=== PATIENT | female | born 1960 | race Caucasian/White ===

== ENCOUNTER → 2017-10-20 12:35 | Outpatient (CLI) | payer OTHER, SELFPAY | PROVIDERS: Family Provider Family Medicine; PCP Family Medicine; Visit Provider Obstetrics & Gynecology | DX: Z12.31 Encounter for screening mammogram for malignant neoplasm of breast (principal) | CPT/HCPCS: 77063; 77067 ==

== ENCOUNTER → 2018-11-19 15:12 | Outpatient (CLI) | payer OTHER, SELFPAY ==
[2018-11-09 13:34] VITALS: BMI 22.4
--- NOTE | 2018-11-19 15:14 | BI_ITS ---
BILATERAL DIGITAL MAMMOGRAM WITH TOMOSYNTHESIS: Mediolateraloblique and craniocaudal views demonstrate no evidence of dominant parenchymal masses. No cluster of microcalcifications or architectural distortion is seen. No evidence of skin thickening is identified. There has been no significant change since 10/20/2017. Breast Density: The breast tissue is extremely dense which may lower the sensitivity of mammography. CAD was used to assist in final assessment. IMPRESSION: NORMAL MAMMOGRAM BILATERALLY. FINAL ASSESSMENT: BIRAD 1 (NEGATIVE) YEARLY MAMMOGRAM RECOMMENDED Electronically Signed: Tico Del Castillo, at 19:30 EDT Tel , Service support , BI/SCREEN MAMM (CAD) W/ALISTAIR LIMA
== END ==
PROVIDERS: Family Provider Family Medicine; PCP Family Medicine; Referring Provider Obstetrics & Gynecology; Visit Provider Obstetrics & Gynecology
DX: Z12.31 Encounter for screening mammogram for malignant neoplasm of breast (principal)
CPT/HCPCS: 77063; 77067

== ENCOUNTER → 2019-02-18 12:11 | Outpatient (CLI) | payer OTHER, SELFPAY ==
[2018-11-09 13:34] VITALS: BMI 22.4
[2019-02-18 14:12] LABS: Cholesterol 197 mg/dL (200); High Density Lipoprotein 96 mg/dL; Thyroid Stim Hormone (TSH) 3.67 uIU/mL (0.358-3.74); Triglycerides 52 mg/dL; Very Low Density Lipoprotein 10 mg/dL (5-40)
== END ==
PROVIDERS: Family Provider Family Medicine; PCP Family Medicine; Visit Provider Family Medicine
DX: E03.9 Hypothyroidism, unspecified (principal); Z13.220 Encounter for screening for lipoid disorders
CPT/HCPCS: 36415; 80061; 84443

== ENCOUNTER → 2019-11-27 16:25 | Outpatient (CLI) | payer OTHER, SELFPAY ==
[2018-11-09 13:34] VITALS: BMI 22.4
[2019-11-14 16:00] VITALS: BMI 22.4
--- NOTE | 2019-11-27 16:26 | BI_ITS ---
MAMMOGRAPHY - BILATERAL SCREENING REASON FOR EXAM: Female, 58 years old. Routine annual screening examination. PERTINENT HISTORY: Sister with breast cancer. History of remote bilateral stereotactic breast biopsies. TECHNIQUE: Digital bilateral breast alistair (3D mammographic acquisition) in the CC and MLO projections. 2-D mediolateral oblique (MLO) and craniocaudad (CC) views of both breasts were obtained. CAD: Full Field Digital Mammography with Computer Added Detection was performed. COMPARISON: Comparison is made with prior study dated 11/19/2018 and 10/20/2017. FINDINGS: Breast Composition: The breasts are extremely dense, which lowers the sensitivity of mammography. There are no dominant masses or suspicious calcifications. Tissue clip markers are once again seen in both breasts. No other significant abnormalities are identified. There has been no significant change since the prior study. BI/SCREEN MAMM (CAD) W/ALISTAIR BILAT IMPRESSION: Stable bilateral screening mammogram. Yearly follow-up mammogram recommended. (A) ASSESSMENT CATEGORY: BIRADS Category 2: Benign. A letter regarding these results will be sent to the patient by the facility within 30 days. Approximately 10% of breast cancers are not detected by mammography. A normal mammogram should not delay biopsy of a clinically suspicious abnormality. [id number] Electronically Signed: Carmelo Martinez, at 8:36 EDT , Service support ,
== END ==
PROVIDERS: PCP Family Medicine; Visit Provider Obstetrics & Gynecology
DX: Z12.31 Encounter for screening mammogram for malignant neoplasm of breast (principal)
CPT/HCPCS: 77063; 77067

== ENCOUNTER → 2020-03-02 10:39 | Outpatient (CLI) | payer OTHER, SELFPAY ==
[2019-11-14 16:00] VITALS: BMI 22.4
[2020-03-02 13:36] LABS: Anion Gap 6 (5-15); BUN 12 mg/dL (7-18); Calcium,Total 9.2 mg/dL (8.5-10.1); Chloride 104 mmol/L (98-107); Cholesterol 192 mg/dL (200); Creatinine, Serum 0.86 mg/dL (0.55-1.02); EST Glomerular Filtration Rate 72 mL/min (>60); Est Glom Filt Rate - Afr Amer 87 mL/min (>60); Glucose 100 mg/dL (74-106); High Density Lipoprotein 83 mg/dL; Potassium 4.8 mmol/L (3.5-5.1); Sodium Level 135 mmol/L (136-145); Thyroid Stim Hormone (TSH) 4.93 uIU/mL (0.358-3.74); Triglycerides 49 mg/dL; Very Low Density Lipoprotein 10 mg/dL (5-40)
== END ==
PROVIDERS: PCP Family Medicine; Visit Provider Family Medicine
DX: Z00.00 Encounter for general adult medical examination without abnormal findings (principal)
CPT/HCPCS: 36415; 80048; 80061; 84443

== ENCOUNTER → 2020-06-09 13:41 | Outpatient (CLI) | payer OTHER, SELFPAY ==
[2019-11-14 16:00] VITALS: BMI 22.4
[2020-06-09 15:38] LABS: Thyroid Stim Hormone (TSH) 3.89 uIU/mL (0.358-3.74)
== END ==
PROVIDERS: PCP Family Medicine; Referring Provider Family Medicine; Visit Provider Family Medicine
DX: Z00.00 Encounter for general adult medical examination without abnormal findings (principal)
CPT/HCPCS: 36415; 84443

== ENCOUNTER → 2020-12-22 17:00 | Outpatient (CLI) | payer OTHER, SELFPAY ==
--- NOTE | 2020-12-22 16:33 | BI_ITS ---
MAMMOGRAPHY - BILATERAL SCREENING REASON FOR EXAM: Female, 59 years old. Routine annual screening examination. PERTINENT HISTORY: Sister with breast cancer. History of prior bilateral stereotactic breast biopsies. TECHNIQUE: Digital bilateral breast alistair (3D mammographic acquisition) in the CC and MLO projections. 2-D mediolateral oblique (MLO) and craniocaudad (CC) views of both breasts were obtained. CAD: Full Field Digital Mammography with Computer Added Detection was performed. COMPARISON: Comparison is made with prior study dated 11/27/2019 and 11/19/2018. FINDINGS: Breast Composition: The breasts are extremely dense, which lowers the sensitivity of mammography. There are no dominant masses or suspicious calcifications. Tissue clip marker is once again seen in both breasts. No other significant abnormalities are identified. There has been no significant change since the prior study. BI/SCRN MAMM (CAD)W/ALISTAIR BILAT IMPRESSION: Stable bilateral screening mammogram. Yearly follow-up mammogram recommended. (A) ASSESSMENT CATEGORY: BIRADS Category 2: Benign. A letter regarding these results will be sent to the patient by the facility within 30 days. Approximately 10% of breast cancers are not detected by mammography. A normal mammogram should not delay biopsy of a clinically suspicious abnormality. [id number] Electronically Signed: Carmelo Martinez MD at 8:27 EST , Service support ,
== END ==
PROVIDERS: PCP Family Medicine; Referring Provider Obstetrics & Gynecology; Visit Provider Obstetrics & Gynecology
DX: Z12.31 Encounter for screening mammogram for malignant neoplasm of breast (principal)
CPT/HCPCS: 77063; 77067

== ENCOUNTER → 2020-12-28 | Outpatient (CLI) | payer OTHER, SELFPAY | END | disposition home or self-care (01) | PROVIDERS: PCP Family Medicine; Visit Provider Family Medicine | DX: U07.1 COVID-19 (principal) | CPT/HCPCS: 87635; U0005; U0003 ==

== ENCOUNTER 2020-12-31 15:16 | Outpatient (CLI) | payer OTHER, SELFPAY ==
[2020-12-31 15:40] VITALS: BP 167/99; PULSE 16; RESP 16; TEMP 36.6; O2SAT 100; BMI 22.8
[2020-12-31] MEDS: 0.9% Saline Lock 10 ML Syringe IV (15:46)
[2020-12-31 16:17] VITALS: BP 179/102; PULSE 55; RESP 16; TEMP 36.6; O2SAT 98
[2020-12-31 17:17] VITALS: BP 170/95; PULSE 46; RESP 16; TEMP 36.6; O2SAT 100
== END 2020-12-31 17:17 | disposition home or self-care (01) ==
LOC: MS3OUT 15:16 → MS3 15:17
PROVIDERS: PCP Family Medicine; Referring Provider Nurse Practitioner Adult Health; Visit Provider Nurse Practitioner Adult Health
DX: Z23 Encounter for immunization (principal); U07.1 COVID-19
CPT/HCPCS: J7050; M0245; Q0245; A4216

== ENCOUNTER → 2021-02-04 09:25 | Outpatient (CLI) | payer OTHER, SELFPAY ==
[2021-02-04 10:55] LABS: Vitamin D,25 Hydroxy 51.6 ng/mL
[2021-02-04 11:31] LABS: Anion Gap 5 (5-15); BUN 13 mg/dL (7-18); BUN/Creat Ratio 16.2 RATIO (10-20); Chloride 106 mmol/L (98-107); Cholesterol 179 mg/dL (200); EST Glomerular Filtration Rate 78 mL/min (>60); Est Glom Filt Rate - Afr Amer 95 mL/min (>60); Free T3 2.7 pg/mL (2.18-3.98); Glucose 90 mg/dL (74-106); High Density Lipoprotein 78 mg/dL; Sodium Level 137 mmol/L (136-145); T4 Free Direct 1.11 ng/dL (0.76-1.46); Thyroid Stim Hormone (TSH) 4.03 uIU/mL (0.358-3.74); Triglycerides 48 mg/dL; Very Low Density Lipoprotein 10 mg/dL (5-40)
== END ==
PROVIDERS: PCP Family Medicine; Referring Provider Family Medicine; Visit Provider Family Medicine
DX: Z00.00 Encounter for general adult medical examination without abnormal findings (principal); E03.9 Hypothyroidism, unspecified
CPT/HCPCS: 36415; 80048; 80061; 82306; 84439; 84443; 84481

== ENCOUNTER 2021-03-04 15:53 | Outpatient (CLI) | payer OTHER, SELFPAY ==
--- NOTE | 2021-03-04 16:08 | BD_ITS ---
STUDY: DUAL ENERGY X-RAY ABSORPTIOMETRY / DXA REASON FOR EXAM: Female, 60 years old. Z780. Patient is postmenopausal. TECHNIQUE: Bone Mineral Density (BMD) measurements of lumbar spine and bilateral hips were obtained. COMPARISON: None. FINDINGS: Lumbar Spine (L1-L4): g/cm2 (0.999) / T-score (-0.2) / Z-score (1.1) Findings are suggestive of normal bone density with a low fracture risk. Left Femur Total: g/cm2 (0.922) / T-score (-0.2) / Z-score (0.7) Left Femoral Neck: g/cm2 (0.843) / T-score (-0.1) / Z-score (1.1) Right Femur Total: g/cm2 (0.873) / T-score (-0.6) / Z-score (0.3) Right Femoral Neck: g/cm2 (0.802) / T-score (-0.4) / Z-score (0.8) BD/Dexa Bone Density Study IMPRESSION: The patient is considered normal as outlined below according to World Nilton Organization (WHO) criteria with a low fracture risk. Reference Information: The T-score is the number of standard deviations above or below the standard which is normal for young adults at their peak bone mineral density. The World Health Organization (WHO) interprets the T-scores as follows: Above -1 Normal bone density Between -1 and -2.5 Osteopenia Equal to / or below -2.5 Osteoporosis As a practical clinical guideline, osteopenia may be graded as follows: Mild -1 through -1.5 Moderate -1.6 through -2.0 Severe -2.1 through -2.4 The Z-score is the number of standard deviations above or below age-matched controls. A Z-score of less than -1.5 would be considered abnormal. References: 1. NIH Osteoporosis and Related Bone Diseases www osteo.org 2. International Society for Clinical Densitometry www iscd.org 3. National Osteoporosis Foundation www nof.org Electronically Signed: Carmelo Martinez MD at 15:41 EST , Service support ,
== END 2021-03-04 23:59 | disposition short-term general hospital (02) ==
LOC: OPBD 15:53
PROVIDERS: PCP Family Medicine; Referring Provider Family Medicine; Visit Provider Family Medicine
DX: Z00.00 Encounter for general adult medical examination without abnormal findings (principal); Z78.0 Asymptomatic menopausal state
CPT/HCPCS: 77080

== ENCOUNTER → 2021-09-30 | Outpatient (CLI) | payer OTHER, SELFPAY ==
--- NOTE | 2021-09-30 16:42 | RAD_ITS ---
EXAM: XR ABDOMEN, 2 VIEWS AND XR CHEST, 1 VIEW CLINICAL INDICATION: Abdominal PAIN TECHNIQUE: Frontal view of the chest, frontal view of the abdomen/pelvis and upright or decubitus view of the abdomen. This report was created using [employer] report generation technology. COMPARISON: None. FINDINGS: CHEST: LUNGS AND PLEURAL SPACES: Normal. No consolidation or edema. No pneumothorax. No effusion. HEART: Normal. Normal heart size. MEDIASTINUM: Central airways and mediastinal contour are unremarkable. ABDOMEN: INTRAPERITONEAL SPACE: No free air. GASTROINTESTINAL TRACT: Air-fluid levels within large and small bowel consistent with ileus. ORGANS: Unremarkable as visualized. No organomegaly. No abnormal calcifications. TUBES, LINES AND DEVICES: Bilateral fallopian tube cannulation. BONES/JOINTS: Mild dextroscoliosis of the lumbar spine. SOFT TISSUES: No acute findings. RAD/Acute Abdomen Inc Chest IMPRESSION: Mild diffuse large and small bowel ileus. Electronically Signed: Vik Argueta MD at 8:49 EDT ,
== END | disposition home or self-care (01) ==
LOC: MTRAD 16:40
PROVIDERS: PCP Family Medicine; Referring Provider Family Medicine; Visit Provider Family Medicine
DX: R10.9 Unspecified abdominal pain (principal)
CPT/HCPCS: 74022

== ENCOUNTER → 2021-10-04 | Outpatient (CLI) | payer OTHER, SELFPAY ==
--- NOTE | 2021-10-04 10:06 | CT_ITS ---
STUDY: CT ABDOMEN AND PELVIS WITH CONTRAST REASON FOR EXAM: Female, 60 years old. Intermittent diarrhea/constipation. History of bloating. RADIATION DOSAGE (If Supplied By Facility): CTDIvol = ( 13.80 ) mGy, DLP = ( 542.07 ) mGycm TECHNIQUE: Transaxial images were obtained from the dome of the diaphragm to the symphysis pubis with oral contrast. Oral and amp; IV Gastrografin and amp; 100mL Isovue-300 was administered. Sagittal and coronal images were reconstructed. Individualized dose optimization techniques were used for this CT. COMPARISON: None. FINDINGS: The visualized lung bases are unremarkable. The visualized portions of the heart are within normal limits. There is a 1.4 cm x 1.6 cm cyst in the anterior medial portion of the right lobe of the liver. This also evidence of a 4.2 cm x 2.5 cm hypodense nodule with peripheral enhancement anteriorly in the lateral midportion of the right lobe of liver. This most likely represents an hemangioma. Normal gallbladder and extrahepatic biliary system. Normal spleen. Normal pancreas. Normal bilateral adrenal glands. Normal right kidney. Normal left kidney. There is a small hiatal hernia. Normal small intestine. Normal colon. The appendix is visualized and appears normal. There is scattered atherosclerotic calcification of the abdominal aorta, without a demonstrated aneurysm. Normal inferior vena cava. Normal retroperitoneum. Normal urinary bladder. ESSURE devices are seen in both fallopian tubes. There is a small umbilical hernia containing fat. Small benign-appearing bilateral inguinal lymph nodes. Disc space narrowing and degeneration at the L4-L5 and L5-S1 levels with spondylosis. Mild dextroscoliosis. CT/Abdomen/Pelvis WITH Contrast IMPRESSION: Small cyst in the anterior medial aspect of the right lobe of the liver. Findings suggestive of a 4.2 cm x 2.5 cm hemangioma in the peripheral lateral aspect of the mid right lobe of the liver. Electronically Signed: Carmelo Martinez MD at 12:47 EDT ,
[2021-10-04 10:09] LABS: Absolute Lymphocyte Count 1.69 X10^3/uL (0.83-4.51); Absolute Neutrophil Count 1.7 X10^3/uL (2.0-7.7); Basophil# 0.03 X10^3/uL; Basophil% 0.8 % (0-1); Eosinophil# 0.09 X10^3/uL; Eosinophils% 2.3 % (0-5); Hematocrit 36.4 % (37-47); Hemoglobin 13.1 g/dL (12.0-15.0); Lymphocyte # 1.69 X10^3/ul (0.83-4.51); Lymphocyte % 43.4 % (19-41); Mean Corpuscular Hgb 32.1 pg (27.0-32.0); Mean Corpuscular Volume 89.2 fL (81-99); Mean Platelet Vol. 9.9 fl (6.2-12.0); Monocyte# 0.41 X10^3/uL; Monocyte% 10.5 % (0-10); NRBC Flagged by Analyzer 0 % (0-5); Neutrophil # 1.66 X10^3/uL (2.7-7.7); Neutrophil % 42.7 % (47-70); Platelet Count 241 K/mm3 (150-450); RBC Distribution Width CV 10.9 % (11.6-14.6); RBC Distribution Width SD 35.7 fl (35.1-43.9); Red Blood Count 4.08 M/mm3 (4.2-5.4); White Blood Count 3.9 K/mm3 (4.4-11.0)
[2021-10-04 10:28] LABS: Erythrocyte Sedimentation Rate 9 mm/hr (0-30)
[2021-10-04 10:32] LABS: ALB/GLOB Ratio 1.2 RATIO (0.9-2.4); AST(SGOT) 22 U/L (15-37); Alanine Aminotransfer ALT/SGPT 22 U/L (13-56); Albumin, Serum 4.2 g/dL (3.2-5.0); Alkaline Phosphatase 53 U/L (45-117); Anion Gap 5 (5-15); BUN 9 mg/dL (7-18); Calcium,Total 9.5 mg/dL (8.5-10.1); Chloride 101 mmol/L (98-107); Creatinine, Serum 0.82 mg/dL (0.55-1.02); EST Glomerular Filtration Rate 76 mL/min (>60); Est Glom Filt Rate - Afr Amer 92 mL/min (>60); Globulin 3.6 g/dL (2.2-4.2); Glucose 103 mg/dL (74-106); Potassium 4.2 mmol/L (3.5-5.1); Protein, Total 7.8 g/dL (6.4-8.2); Sodium Level 133 mmol/L (136-145)
== END | disposition home or self-care (01) ==
PROVIDERS: Physician Assistant; PCP Family Medicine; Referring Provider Surgery; Visit Provider Surgery
DX: K59.00 Constipation, unspecified (principal); R10.9 Unspecified abdominal pain
CPT/HCPCS: 36415; 74177; 80053; 85025; 85652; Q9967

== ENCOUNTER → 2021-11-29 | Outpatient (CLI) | payer OTHER, SELFPAY ==
[2021-12-05 09:53] LABS: HPV APTIMA, High Risk Negative (Negative)
== END | disposition home or self-care (01) ==
LOC: LABSPEC 11-30 07:13
PROVIDERS: PCP Family Medicine; Visit Provider Nurse Practitioner Women's Health
DX: Z12.4 Encounter for screening for malignant neoplasm of cervix (principal)
CPT/HCPCS: 87624; 88175; G0145

== ENCOUNTER → 2021-12-23 | Outpatient (CLI) | payer OTHER, SELFPAY ==
--- NOTE | 2021-12-23 15:40 | BI_ITS ---
MAMMOGRAPHY - BILATERAL SCREENING REASON FOR EXAM: Female, 61 years old. Routine annual screening examination. PERTINENT HISTORY: Sister with breast cancer. Prior bilateral stereotactic breast biopsies. TECHNIQUE: Digital bilateral breast alistair (3D mammographic acquisition) in the CC and MLO projections. 2-D mediolateral oblique (MLO) and craniocaudad (CC) views of both breasts were obtained. CAD: Full Field Digital Mammography with Computer Added Detection was performed. COMPARISON: Comparison is made with prior study dated 12/22/2020 and 11/27/2019. FINDINGS: Breast Composition: The breasts are extremely dense, which lowers the sensitivity of mammography. There are no dominant masses or suspicious calcifications. A tissue clip marker is seen in the deep central slightly medial aspect of the right breast. A tissue clip marker is also seen in the central slightly lateral aspect of the left breast. No other significant abnormalities are identified. There has been no significant change since the prior study. BI/SCRN MAMM (CAD)W/ALISTAIR BILAT IMPRESSION: Stable bilateral screening mammogram. Yearly follow-up mammogram recommended. (A) ASSESSMENT CATEGORY: BIRADS Category 2: Benign. A letter regarding these results will be sent to the patient by the facility within 30 days. Approximately 10% of breast cancers are not detected by mammography. A normal mammogram should not delay biopsy of a clinically suspicious abnormality. [id number] Electronically Signed: Carmelo Martinez MD at 8:22 EST ,
== END | disposition home or self-care (01) ==
LOC: OPBI 15:39
PROVIDERS: PCP Family Medicine; Visit Provider Nurse Practitioner Women's Health
DX: Z12.31 Encounter for screening mammogram for malignant neoplasm of breast (principal); Z80.3 Family history of malignant neoplasm of breast
CPT/HCPCS: 77063; 77067

== ENCOUNTER → 2022-02-03 | Outpatient (CLI) | payer OTHER, SELFPAY ==
[2022-02-03 18:22] LABS: Anion Gap 8 (5-15); BUN 13 mg/dL (7-18); BUN/Creat Ratio 16.4 RATIO (10-20); Calcium,Total 9.1 mg/dL (8.5-10.1); Chloride 102 mmol/L (98-107); Cholesterol 183 mg/dL (200); Creatinine, Serum 0.79 mg/dL (0.55-1.02); EST Glomerular Filtration Rate 79 mL/min (>60); Est Glom Filt Rate - Afr Amer 96 mL/min (>60); Free T3 2.6 pg/mL (2.18-3.98); Glucose 89 mg/dL (74-106); High Density Lipoprotein 86 mg/dL; Sodium Level 134 mmol/L (136-145); Thyroid Stim Hormone (TSH) 2.84 uIU/mL (0.358-3.74); Triglycerides 48 mg/dL; Very Low Density Lipoprotein 10 mg/dL (5-40)
== END | disposition home or self-care (01) ==
LOC: MFPLAB 15:43
PROVIDERS: PCP Family Medicine; Referring Provider Family Medicine; Visit Provider Family Medicine
DX: Z00.00 Encounter for general adult medical examination without abnormal findings (principal); E03.9 Hypothyroidism, unspecified
CPT/HCPCS: 36415; 80048; 80061; 82306; 84439; 84443; 84481

== ENCOUNTER → 2022-12-01 | Outpatient (CLI) | payer OTHER, SELFPAY ==
[2022-12-01 17:04] LABS: NATERA MAILED SPECIMEN
== END | disposition home or self-care (01) ==
PROVIDERS: PCP Family Medicine; Referring Provider Obstetrics & Gynecology; Visit Provider Obstetrics & Gynecology
DX: N89.8 Other specified noninflammatory disorders of vagina (principal); Z80.3 Family history of malignant neoplasm of breast
CPT/HCPCS: 36415; 87070; 87205

== ENCOUNTER → 2022-12-28 | Outpatient (CLI) | payer OTHER, SELFPAY ==
--- NOTE | 2022-12-28 15:54 | BI_ITS ---
MAMMOGRAPHY - BILATERAL SCREENING REASON FOR EXAM: Female, 62 years old. Routine annual screening examination. PERTINENT HISTORY: Sister with breast cancer. Remote bilateral stereotactic breast biopsies. TECHNIQUE: Digital bilateral breast alistair (3D mammographic acquisition) in the CC and MLO projections. 2-D mediolateral oblique (MLO) and craniocaudad (CC) views of both breasts were obtained. CAD: Full Field Digital Mammography with Computer Added Detection was performed. COMPARISON: Comparison is made with prior study December 23, 2021 and December 22, 2020. FINDINGS: Breast Composition: The breasts are extremely dense, which lowers the sensitivity of mammography. There are no dominant masses or suspicious calcifications. A tissue clip marker is once again seen in the deep central slightly medial aspect of the right breast. A tissue clip marker is also seen in the central slightly lateral aspect of the left breast. No other significant abnormalities are identified. There has been no significant change since the prior study. BI/SCRN MAMM (CAD)W/ALISTAIR BILAT IMPRESSION: Stable bilateral screening mammogram. Yearly follow-up mammogram recommended. (A) ASSESSMENT CATEGORY: BIRADS Category 2: Benign. A letter regarding these results will be sent to the patient by the facility within 30 days. Approximately 10% of breast cancers are not detected by mammography. A normal mammogram should not delay biopsy of a clinically suspicious abnormality. [id number] Electronically Signed: Carmelo Martinez MD at 8:49 EST ,
== END | disposition home or self-care (01) ==
LOC: OPBI 15:54
PROVIDERS: PCP Family Medicine; Referring Provider Obstetrics & Gynecology; Visit Provider Obstetrics & Gynecology
DX: Z12.31 Encounter for screening mammogram for malignant neoplasm of breast (principal); Z80.3 Family history of malignant neoplasm of breast
CPT/HCPCS: 77063; 77067

== ENCOUNTER → 2023-01-06 | Outpatient (CLI) | payer OTHER, SELFPAY ==
--- NOTE | 2023-01-06 12:49 | RAD_ITS ---
STUDY: X-RAY CHEST REASON FOR EXAM: Female, 62 year old. Costochondritis. TECHNIQUE: Frontal and lateral views of the chest. COMPARISON: September 30, 2021. FINDINGS: Stable cardiomegaly, aortic tortuosity, prominent central pulmonary arteries and hyperinflation with scattered healed parenchymal granulomatous calcifications. No acute or emergent finding. No abnormality of the visualized soft tissue structures of the upper abdomen. RAD/Chest PA and Lateral IMPRESSION: Stable chest with no acute or emergent finding. Electronically Signed: Lg Cuello MD at 13:10 EST ,
== END | disposition home or self-care (01) ==
LOC: MTRAD 12:45
PROVIDERS: PCP Family Medicine; Referring Provider Family Medicine; Visit Provider Family Medicine
DX: M94.0 Chondrocostal junction syndrome [Tietze] (principal)
CPT/HCPCS: 71046

== ENCOUNTER → 2023-02-11 | Outpatient (CLI) | payer OTHER, SELFPAY ==
--- OUTSIDE RECORDS SUMMARY | 2023-02-11 11:09 | XMS RPT_ITS | CCD ---
Author Name Unknown Address [address] [place] [address] Organization [facility] Care Team Providers Care Substation Mechanic Name Role Phone Gurmeet CURRY, Alyce Grossman Unavailable Janeth Durand MD Unavailable [phone] Maninder Villalba Unavailable [phone] No, Physician Unavailable Unavailable VIAU, GET CONTRERAS Unavailable Unavailable NO, PHYSICIAN Unavailable Unavailable VIAU, GET CONTRERAS Unavailable Unavailable NO, PHYSICIAN Unavailable Unavailable VIAU, GET CONTRERAS Unavailable Unavailable MANINDER VILLALBA Unavailable Unavailable VIAU, GET CONRTERAS Unavailable Unavailable NO, PHYSICIAN Unavailable Unavailable Viau, Get Lion Unavailable Unavailable Viau, Get R Unavailable Unavailable Gurmeet CURRY, Alyce Grossman Unavailable [phone] Allergies Allergy Classification Reported Allergen(s) Allergy Type Date of Onset Reaction(s) Facility (3 sources) [facility] drug allergy 09-16-2016 [facility] Medications Current Medications Medication Drug Class(es) Dates Sig (Normalized) Sig (Original) B-Complex With Vitamin C Tablet (3 sources) take 1 tablet by mouth once daily B-complex with vitamin C tablet Take 1 tablet by mouth daily. Active fish oil (3 sources) take 1 capsule by mouth once daily fish oil-omega-3 fatty acids 300-1,000 mg capsule Take 2 g by mouth daily. Active Multivitamin With Minerals Tablet (3 sources) take 1 tablet by mouth once daily multivitamin with minerals tablet Take 1 tablet by mouth daily. Active Completed/Discontinued Medications Medication Drug Class(es) Dates Sig (Normalized) Sig (Original) ergocalciferol 400 unt oral tablet (3 sources) Provitamin D2 Compound Start: 09-16-2016 take 1 tablet by mouth once daily VITAMIN D2 400 UNIT TABS One tablet by mouth daily ERGOCALCIFEROL [id number] Janeth Durand MD MULTIPLE VITAMINS-MINERALS (2 sources) Start: 09-16-2016 take 1 tablet by mouth once daily CALVIN MULTIVITAMIN FOR WOMEN TABS One tablet by mouth daily MULTIPLE VITAMINS-MINERALS [id number] Janeth Durand MD MULTIPLE VITAMINS-MINERALS (1 source) Start: 09-16-2016 take 1 tablet by mouth once daily CALVIN MULTIVITAMIN FOR WOMEN TABS One tablet by mouth daily MULTIPLE VITAMINS-MINERALS [id number] Janeth Durand MD Drug Treatment Unknown - unknown (1 source) No information available. LEVOTHYROXINE SODIUM (6 sources) l-Thyroxine Start: 09-16-2016 take 1 tablet by mouth once daily SYNTHROID 88 MCG TABS One tablet by mouth daily LEVOTHYROXINE SODIUM [id number] Janeth Durand MD Problems Active Problems Problem Classification Problem Date Documented Date Episodic/Chronic Spondylosis; intervertebral disc disorders; other back problems (9 sources) Degeneration of cervical intervertebral disc; Translations: [Other cervical disc displacement, unspecified cervical region] Onset: 12-08-2016 12-08-2016 Chronic Unclassified (2 sources) Screening for malignant neoplasm of cervix ; Translations: [Encounter for screening for malignant neoplasm of cervix] Onset: 09-16-2016 09-16-2016 Unclassified (2 sources) Gynecologic examination ; Translations: [Encounter for gynecological examination (general) (routine) with abnormal findings] Onset: 09-16-2016 09-16-2016 Unclassified (3 sources) Screening for malignant neoplasm of breast ; Translations: [Encounter for other screening for malignant neoplasm of breast] Onset: 09-01-2016 09-01-2016 Unclassified (1 source) Procedure carried out on subject; Translations: [Encounter for screening for human papillomavirus (HPV)] Onset: 09-16-2016 09-16-2016 Past or Other Problems Problem Classification Problem Date Documented Date Episodic/Chronic Immunizations and screening for infectious disease (2 sources) Encounter for screening for human papillomavirus (HPV); Translations: [Encounter for screening for human papillomavirus (HPV)] Onset: 09-16-2016 09-16-2016 Episodic Other female genital disorders (3 sources) H/O gynecological disorder; Translations: [Personal history of other diseases of the female genital tract] Onset: 09-16-2016 09-16-2016 Episodic Unclassified (1 source) Herniated cervical disc Results Test Name Value Interpretation Reference Range Facil ity Vital Signs Date Time Vital Sign Value Performing Clinician Alma trivedi 12-30-2016 11:20-0500 BMI (Body Mass Index) 22.74 kg/m2 Get Salinas [facility] Work Phone: 12-30-2016 11:20-0500 BP Diastolic 97 mm[Hg] Get Salinas [facility] Work Phone: 12-30-2016 11:20-0500 BP Systolic 146 mm[Hg] Get Salinas [facility] Work Phone: 12-30-2016 11:20-0500 Height 175.3 cm Get Salinas [facility] Work Phone: 12-30-2016 11:20-0500 Pulse (Heart Rate) 63 /min Get Salinas [facility] Work Phone: 12-30-2016 11:20-0500 Respiratory Rate 18 /min Get Salinas [facility] Work Phone: 12-30-2016 11:20-0500 Weight 69.85 kg Get Salinas [facility] Work Phone: 12-08-2016 16:17-0400 BMI (Body Mass Index) 22.74 kg/m2 Get Salinas [facility] Work Phone: 12-08-2016 16:17-0400 BP Diastolic 112 mm[Hg] Get Salinas [facility] Work Phone: 12-08-2016 16:17-0400 BP Systolic 160 mm[Hg] Get Salinas [facility] Work Phone: 12-08-2016 16:17-0400 Height 175.3 cm Get Salinas [facility] Work Phone: 12-08-2016 16:17-0400 Pulse (Heart Rate) 60 /min Get Salinas [facility] Work Phone: 12-08-2016 16:17-0400 Respiratory Rate 18 /min Get Salinas [facility] Work Phone: 12-08-2016 16:17-0400 Weight 69.85 kg Get Salinas [facility] Work Phone: 09-16-2016 09:53-0400 BMI (Body Mass Index) 22.77 kg/m2 Janeth Durand MD [facility] 09-16-2016 09:53-0400 Body Temperature 97.6 [degF] Janeth Durand MD [facility] 09-16-2016 09:53-0400 BP Diastolic 97 mm[Hg] Janeth Durand MD [facility] 09-16-2016 09:53-0400 BP Systolic 153 mm[Hg] Janeth Durand MD [facility] 09-16-2016 09:53-0400 Height 175.26 cm Janeth Durand MD [facility] 09-16-2016 09:53-0400 Pulse (Heart Rate) 54 /min Janeth Durand MD [facility] 09-16-2016 09:53-0400 Respiratory Rate 16 /min Janeth Durand MD [facility] 09-16-2016 09:53-0400 Weight 69.95 kg Janeth Durand MD [facility] Encounters Encounter Date Encounter Type Care Provider Facility Start: 12-30-2016 End: 12-30-2016 Ambulatory GET SALINAS [facility] Start: 12-30-2016 Office outpatient vi sit 10 minutes Get Dimitris Ruggierozak Work Phone: [facility] Start: 12-23-2016 Ambulatory Get Ayad Salinas Facility :[place] Start: 12-23-2016 End: 12-23-2016 Ambulatory Get Salinas Work Phone: [facility] Start: 12-08-2016 Office outpatient ne w 30 minutes Get Salinas Work Phone: [facility] Start: 12-08-2016 End: 12-12-2016 [facility] Procedures Date Procedure Procedure Detail Performing Clinician Start: 09-16-2016 Gynecologic examination Encounter for gynecological examination (general) (routine) with abnormal findings Alyce Levi [employer] Start: 09-16-2016 End: 09-22-2016 Mammogram, screening Janeth durand MD Work Phone: Start: 09-16-2016 Screening for malignant neoplasm of cervix Screening for cervical cancer Alyce Levi [employer] ATTEND[employer] Start: 09-16-2016 End: 09-22-2016 Transvaginal us, non-ob Janeth lam MD Work Phone: Start: 09-16-2016 End: 09-22-2016 Us exam, pelvic, complete Janeth Durand MD Work Phone: Start: 09-01-2016 End: 09-22-2016 Mammogram, screening Janeth durand MD Work Phone: Start: 09-01-2016 Screening for malignant neoplasm of breast Screening for breast cancer Alyce Levi [employer]END[employer] Plan of Treatment Date Care Activity Detail Author Start: 12-30-2016 Ambulatory 12/30/2016 Office Visit Orthopedic Surgery Viau, Get Contreras MD [address] [id number] [phone] [facility] Start: 10-14-2016 Influenza vaccination SEQUENTIAL INFLUENZA VACCINE (#1) [facility] Work Phone: Start: 09-16-2016 End: 09-16-2016 Appointment Appointment [facility] Start: 09-16-2016 End: 09-22-2016 Mammogram, screening Mammogram, Screening, both breasts [facility] Start: 09-16-2016 End: 09-22-2016 Transvaginal us, non-ob US Transvaginal [facility] Start: 09-16-2016 End: 09-22-2016 Us exam, pelvic, complete US Pelvis [facility] Start: 09-01-2016 End: 09-22-2016 Mammogram, screening Mammogram-Bilateral, Screening, Bilateral [facility] Start: 1960 HEPATITIS C SCREENING HEPATITIS C SCREENING [facility] Work Phone: Start: 1960 Screening colonoscopy COLONOSCOPY [facility] Work Phone: Start: 1960 Screening for malignant neoplasm of cervix PAP SMEAR [facility] Work Phone: Start: 1960 Tetanus vaccination TETANUS EVERY 10 YR [facility] Work Phone: End: 12-08-2017 MR Cervical Spine Without Contrast MR Cervical Spine Without Contrast Routine Herniated cervical disc 1 Occurrences starting 12/08/2016 until 12/08/2017 [facility] Work Phone: Payers Date Payer Category Payer Unknown [id number] 2. [id number] Social History Date Type Detail Facility Start: 12-08-2016 End: 12-30-2016 Tobacco smoking status NHIS Never smoker [facility] Work Phone: Sex Assigned At Not on file [facility] Work Phone: Assessments Diagnosis Degenerative disc disease, c ervical - Primary Diagnosis Herniated cervical disc - Pr imary Displacement of cervical intervertebral disc without myelopathy Summary Purpose Family History No Family History Records FoundNo Family History Records Found Advance Directives No Advanced Directives Records FoundNo Advanced Directives Records Found Additional Source Comments INFORMATION SOURCE (unrecogn ized section and content) DATE CREATED AUTHOR AUTHOR'S ORGANIZ ATION 08/08/2017 [facility] FOR RECORDS PERTAINING TO PATIENTS WHO ARE OR HAVE BEEN ENROLLED IN A CHEMICAL DEPENDENCY/SUBSTANCEABUSE PROGRAM, SOME INFORMATION MAY BE OMITTED. This clinical summary was aggregated from multiple sources. Caution should be exercised in using it in the provision of clinical care. This summary normalizes information from multiple sources, and as a consequence, information in this document may materially change the coding, format and clinical context of patient data. In addition, data may be omitted in some cases. CLINICAL DECISIONS SHOULD BE BASED ON THE PRIMARY CLINICAL RECORDS. [employer] [facility] provides no warranty or guarantee of the accuracy or completeness of information in this document.
[2023-02-11 12:04] LABS: AST(SGOT) 24 U/L (15-37); Alanine Aminotransfer ALT/SGPT 26 U/L (13-56); Albumin, Serum 3.8 g/dL (3.2-5.0); Alkaline Phosphatase 56 U/L (45-117); Anion Gap 3 (5-15); BUN 10 mg/dL (7-18); BUN/Creat Ratio 12.1 RATIO (10-20); Calcium,Total 8.5 mg/dL (8.5-10.1); Chloride 106 mmol/L (98-107); Cholesterol 191 mg/dL (200); Creatinine, Serum 0.82 mg/dL (0.55-1.02); EST Glomerular Filtration Rate 75 mL/min (>60); Est Glom Filt Rate - Afr Amer 91 mL/min (>60); Free T3 2.5 pg/mL (2.18-3.98); Globulin 3.8 g/dL (2.2-4.2); Glucose 97 mg/dL (74-106); High Density Lipoprotein 86 mg/dL; Potassium 4.4 mmol/L (3.5-5.1); Protein, Total 7.6 g/dL (6.4-8.2); Sodium Level 135 mmol/L (136-145); T4 Free Direct 1.21 ng/dL (0.76-1.46); Thyroid Stim Hormone (TSH) 1.68 uIU/mL (0.358-3.74); Triglycerides 56 mg/dL; Very Low Density Lipoprotein 11 mg/dL (5-40)
== END | disposition home or self-care (01) ==
LOC: LAB 11:04
PROVIDERS: PCP Family Medicine; Referring Provider Family Medicine; Visit Provider Family Medicine
DX: Z00.00 Encounter for general adult medical examination without abnormal findings (principal); E03.9 Hypothyroidism, unspecified
CPT/HCPCS: 36415; 80053; 80061; 84439; 84443; 84481

== ENCOUNTER → 2023-09-04 | Outpatient (CLI) | payer OTHER, SELFPAY ==
[2023-09-04 10:24] LABS: AST(SGOT) 30 U/L (15-37); Alanine Aminotransfer ALT/SGPT 37 U/L (13-56); Albumin, Serum 3.9 g/dL (3.2-5.0); Alkaline Phosphatase 55 U/L (45-117); Anion Gap 7 (5-15); BUN 15 mg/dL (7-18); BUN/Creat Ratio 16.9 RATIO (10-20); Calcium,Total 8.8 mg/dL (8.5-10.1); Chloride 102 mmol/L (98-107); Cholesterol 173 mg/dL (200); Creatinine, Serum 0.89 mg/dL (0.55-1.02); EST Glomerular Filtration Rate 69 mL/min (>60); Est Glom Filt Rate - Afr Amer 83 mL/min (>60); Globulin 3.8 g/dL (2.2-4.2); Glucose 94 mg/dL (74-106); High Density Lipoprotein 83 mg/dL; Potassium 4.1 mmol/L (3.5-5.1); Protein, Total 7.7 g/dL (6.4-8.2); Sodium Level 134 mmol/L (136-145); T4 Free Direct 1.08 ng/dL (0.76-1.46); Thyroid Stim Hormone (TSH) 2.25 uIU/mL (0.358-3.74); Triglycerides 63 mg/dL; Very Low Density Lipoprotein 13 mg/dL (5-40)
[2023-09-04 10:26] LABS: T3 Total - Triiodothyronine 0.82 ng/mL (0.6-1.81)
[2023-09-05 15:27] LABS: Free T3 2.2 pg/mL (2.18-3.98)
== END | disposition home or self-care (01) ==
LOC: MTLAB 08:46
PROVIDERS: PCP Family Medicine; Referring Provider Family Medicine; Visit Provider Family Medicine
DX: E03.9 Hypothyroidism, unspecified (principal); I10 Essential (primary) hypertension
CPT/HCPCS: 36415; 80053; 80061; 84439; 84443; 84480; 84481

== ENCOUNTER → 2024-03-08 | Outpatient (CLI) | payer OTHER, SELFPAY ==
--- NOTE | 2024-03-08 13:17 | BI_ITS ---
MAMMOGRAPHY - BILATERAL SCREENING REASON FOR EXAM: Female, 63 years old. Routine annual screening examination. PERTINENT HISTORY: Sister with breast cancer. History of bilateral stereotactic breast biopsies. TECHNIQUE: Digital bilateral breast alistair (3D mammographic acquisition) in the CC and MLO projections. 2-D mediolateral oblique (MLO) and craniocaudad (CC) views of both breasts were obtained. CAD: Full Field Digital Mammography with Computer Added Detection was performed. COMPARISON: Comparison is made with prior study dated December 28, 2022 and December 23, 2021. FINDINGS: Breast Composition: The breasts are extremely dense, which lowers the sensitivity of mammography. There are no dominant masses or suspicious calcifications. A tissue clip marker is once again seen in the deep central slightly medial aspect of the right breast. A tissue clip marker is also seen in the central slightly lateral aspect left breast. No other significant abnormalities are identified. There has been no significant change since the prior study. BI/SCRN MAMM (CAD)W/ALISTAIR BILAT IMPRESSION: Stable bilateral screening mammogram. Yearly follow-up mammogram recommended. (A) ASSESSMENT CATEGORY: BIRADS Category 2: Benign. A letter regarding these results will be sent to the patient by the facility within 30 days. Approximately 10% of breast cancers are not detected by mammography. A normal mammogram should not delay biopsy of a clinically suspicious abnormality. [id number] Electronically Signed: Carmelo Martinez MD at 14:16 EST ,
== END | disposition home or self-care (01) ==
LOC: OPBI 13:15
PROVIDERS: PCP Family Medicine; Referring Provider Family Medicine; Visit Provider Family Medicine
DX: Z12.31 Encounter for screening mammogram for malignant neoplasm of breast (principal); Z80.3 Family history of malignant neoplasm of breast
CPT/HCPCS: 77063; 77067

== ENCOUNTER → 2024-03-14 | Outpatient (CLI) | payer OTHER, SELFPAY ==
[2024-03-14 11:28] LABS: Anion Gap 6 (5-15); BUN 13 mg/dL (7-18); BUN/Creat Ratio 14.3 RATIO (10-20); Calcium,Total 9.3 mg/dL (8.5-10.1); Chloride 104 mmol/L (98-107); Cholesterol 191 mg/dL (200); Creatinine, Serum 0.91 mg/dL (0.55-1.02); EST Glomerular Filtration Rate 67 mL/min (>60); Est Glom Filt Rate - Afr Amer 81 mL/min (>60); Glucose 93 mg/dL (74-106); High Density Lipoprotein 88 mg/dL; Potassium 4.5 mmol/L (3.5-5.1); Sodium Level 134 mmol/L (136-145); Triglycerides 34 mg/dL; Very Low Density Lipoprotein 7 mg/dL (5-40)
== END | disposition home or self-care (01) ==
LOC: MFPLAB 09:11
PROVIDERS: PCP Family Medicine; Visit Provider Family Medicine
DX: I10 Essential (primary) hypertension (principal)
CPT/HCPCS: 36415; 80048; 80061; 84443

== ENCOUNTER 2024-05-27 09:44 | Day surgery (SDC) | payer OTHER, SELFPAY ==
[2024-05-27] VITALS (9 sets, daily range): BP systolic 121–155; BP diastolic 83–102; PULSE 53–78; RESP 16; TEMP 36.5–37.4; O2SAT 99–100; BMI 23.8
--- NOTE | 2024-05-27 10:45 | COLBX_PTH ---
PATIENT: SADE LORA LOC: EN U#:[id number] AGE/SX: 63/F ROOM: RE05/27/[address]: Dr. Morro Max DO : 1960 BED: DIS: 05/27/2024 SPEC #: [id number] RECD: 05/28/24 09:14 STATUS: ALINA REQ #: [id number] MICHAEL: 05/27/24 10:[address]: Morro Max DEPT: SURGICAL PATHOLOGY RECD BY: Harley Mann ENTERED: 05/28/24 09:14 SP TYPE: COLON BX OTHR DR: Dr. Panchito Hutton MD Tissues: A - Sigmoid colon biopsy Procedures: Immunohistochemical Stains Surgery Specimen Level IV IHC Stain ADDITIONAL HEADER OPERATION: Colonoscopy with polypectomy PRE-OP DIAGNOSIS: Encounter for screening for malignant neoplasm of colon TISSUE SUBMITTED: A- Sigmoid polyp MICROSCOPIC DIAGNOSIS A. Sigmoid colon, polyp, biopsy: * Polypoid colonic mucosa with bland spindle cells in the lamina propria. * The spindle cells are positive for SMA and negative for S100 and JOAQUIN, supporting a diagnosis of mucosal prolapse. * Negative for neoplasia. MICROSCOPIC DESCRIPTION Slides are reviewed. All matched controls reacted appropriately. These tests were developed and their performance characteristics determined by [facility]. They may not have been cleared or approved by the U.S. Food and Drug Administration. The FDA has determined that such clearance or approval is not necessary. The above immunohistochemical/dualISH markers are ordered and reviewed by the Pathologist. GROSS DESCRIPTION A. Received in fixative is one container labeled with the patient's name and designated Sigmoid polyp. The specimen consists of one irregular fragment of light magallon soft tissue that measures 0.3 x 0.2 x 0.1 cm. The specimen is totally submitted in one cassette. 05/28/2024 CPT:47348 ,74807,[id number]
--- NOTE | 2024-05-27 10:53 | PRE.ANES_ITS ---
ASA Classification* ASA Classification ASA Classification: 2 Assessment & Plan Anesthesia* Anesthesia Assessment Anesthesia Assessment: Discussed sedation and/or anesthesia options, risks, benefits, and alternatives with patient/parents/legal guardian/POA. Questions invited. The patient/parents/legal guardian/POA seems to understand and agrees to proceed with anesthesia plan. Reviewed the physical assessment, medical history, allergy history and patient home medications list prior to surgery/procedure/anesthetic and documented any changes. Performed airway and anesthesia risk assessments. Anesthesia Type Anesthesia Type: MAC Anesthesia Focused Assessment* Temperature: 99.4 F Pulse Rate: 76 Blood Pressure: 155/102 Respiratory Rate: 16 Pulse Ox: 100 Airway Assessment Mouth opens: >3 cm Mallampati Score: II Focused Labs Anesthesia Preop lab: CBC WBC 3.9 K/mm3 (4.4-11.0) L 10/04/21 09:59 10/04/21 RBC 4.08 M/mm3 (4.2-5.4) L 10/04/21 09:59 10/04/21 Hgb 13.1 g/dL (12.0-15.0) 10/04/21 09:59 10/04/21 Hct 36.4 % (37-47) L 10/04/21 09:59 10/04/21 Plt Count 241 K/mm3 (150-450) 10/04/21 09:59 10/04/21 CHEMISTRY Potassium 4.5 mmol/L (3.5-5.1) 03/14/24 09:11 03/14/24 Sodium 134 mmol/L (136-145) L 03/14/24 09:11 03/14/24 BUN 13 mg/dL (7-18) 03/14/24 09:11 03/14/24 Creatinine 0.91 mg/dL (0.55-1.02) 03/14/24 09:11 03/14/24 Glucose 93 mg/dL (74-106) 03/14/24 09:11 03/14/24 TSH 3.280 uIU/mL (0.358-3.740) 03/14/24 09:11 02/15 COAG Pre-Assessment Diagnosis/Proposed Procedure Planned Operative Procedure(s): COLONOSCOPY Anesthesia History Anesthesia History - occupational health nurse manager: Anesthesia History - occupational health nurse manager Hx Hospitalization Any Problems With Anesthesia No 05/23/24 11:25 Cholinesterase deficiency No 05/23/24 11:25 You/Your Family Experience No 05/23/24 11:25 fever (hyperthermia) with Relationship Recent Exposure to Contagious No 05/27/24 10:10 Disease Does patient have nerve No 05/23/24 11:25 stimulator Patient instructed to have device shut off --Does patient have Pacemaker No 05/27/24 10:10 or ICD? When Was Last Pacemaker Check QUESTION #4 FULL TEXT: You/Your Family Experience fever (hyperthermia) with Anesthesia Last Oral Intake Last Oral intake: Last Oral Intake NPO since 07:30 05/27/24 10:10 Meds taken in AM with sips of No 05/27/24 10:10 water? Meds patient instructed to take am of surgery PONV PONV - occupational health nurse manager: PONV - occupational health nurse manager Female Yes 05/23/24 11:25 HX of Motion Sickness Yes 05/23/24 11:25 HX of N/V After Surgery No 05/23/24 11:25 Non-Smoker Yes 05/23/24 11:25 Duration of Surgery greater No 05/23/24 11:25 than 60 minutes Number of Risk Factors 3 05/23/24 11:25 PONV Score Moderate Risk 05/23/24 11:25 Height & Weight Height & Weight: Anesthesia: Height & Weight Height 5 ft 8 in 05/27/24 10:10 Weight: 70.9 kg 05/27/24 10:10 Body Mass Index (BMI) 23.8 05/27/24 10:10 Respiratory Assessment Respiratory Assessment - occupational health nurse manager: Respiratory Tract Infection Hx - occupational health nurse manager Hx Respiratory Tract Infection No 05/23/24 11:25 STOP Sleep Apnea STOP Sleep Apnea - occupational health nurse manager: STOP Sleep Apnea - occupational health nurse manager Hx Hypertension Yes 05/23/24 11:25 Hx Sleep Apnea No 05/23/24 11:25 CPAP BIPAP Do you snore loudly (louder No 05/23/24 11:25 than talking or can be heard Do you often feel tired/ No 05/23/24 11:25 fatigued/ sleepy during daytime? Has anyone observed you stop No 05/23/24 11:25 breathing during sleep? STOP Results Negative 05/23/24 11:25 QUESTION #5 FULL TEXT : Do you snore loudly (louder than talking or can be heard through closed doors)? Tobacco Use History Tobacco Use History - occupational health nurse manager: Tobacco Use History - occupational health nurse manager Tobacco Use Smoking Status Never smoker 05/23/24 11:25 Hx Tobacco Use No 05/23/24 11:25 Years Smoking Packs Smoked per Day Smoking Cessation Date was within the last 15 years Hx Smoking Cessation Date Hx Smoking Cessation Counseling Hematologic Medial History Hematologic Hx - occupational health nurse manager: Hematologic Medical Hx - antisqueak filler Hx of Blood Transfusion No 05/23/24 11:25 Hx of Transfusion in last 3 No 05/23/24 11:25 Months Date of Last Transfusion (if within last 3 months) Ever experience any problems No 05/23/24 11:25 with transfusion(s)? Specify any problems Hx of Preganancy in last 3 No 05/23/24 11:25 Months Nurse Filling Out Transfusion [facility] 05/23/24 11:25 & Questions: Date: 05/23/24 05/23/24 11:25 Time: 11:05/23/24 11:25 Patient unable to answer at this time (ie. confused, unrespo /Reproduction History /Reproductive History - occupational health nurse manager: /Reproductive Hx- occupational health nurse manager Hx Now No 05/23/24 11:25 Gestational Age (in weeks): EDC: Hx Hx Para Hx Section SAB No 05/23/24 11:25 [facility] Medical History Wears contact lenses Post-menopausal Alcohol use Non-smoker Hypertension Essential (primary) hypertension Hemorrhoids Thyroid disorder Home Medications ?Medication ?Instructions ?Recorded ?Last Taken ?Type levothyroxine 100 mcg tablet 100 mcg PO DAILY 10/04/21 Unknown History multivitamin 1 tab PO DAILY 10/04/21 Unkn own History omega 5-zta-rfg-fish oil 300 1 cap PO DAILY 12/01/22 U nknown History mg-1,000 mg capsule (Fish Oil) losartan 50 mg tablet 50 mg PO QDAY 12/04/23 Unkno wn History minoxidil 2.5 mg tablet 2.5 mg PO QDAY 12/04/23 Unkn own History cholecalciferol (vitamin D3) 25 25 mcg PO QDAY 5 Unknown History mcg (1,000 unit) capsule polyethylene glycol 3350 17 4 g PO QDAY 03/07/24 Unkno wn History gram/dose oral powder (Miralax) vitamin B complex 1 tab PO QDAY 03/07/24 Unkno wn History sodium,potassium,mag sulfates 17.5 480 ml PO ONCE #354 mL 05/22/24 Unknown Rx gram-3.13 gram-1.6 gram oral soln (Suprep Bowel Prep Kit) sodium,potassium,mag sulfates 17.5 See Rx Instructions PO .COMPLEX 05/24/24 Unknown Rx gram-3.13 gram-1.6 gram oral soln #354 mL (Suprep Bowel Prep Kit) Allergy/AdvReac Type Severity Reaction Status Date / Time lisinopril AdvReac Cough Verified 05/27/24 10:05 sulfites Allergy Mild Angioedema Uncoded 05/23/24 11:45 Family History Mother CVA (cerebral vascular accident) Father Hypertension Cancer LUNG Sister Breast cancer Grandfather Colon cancer Paternal, In his 70's Surgical History Hx of colonoscopy History of 2 sections H/O breast biopsy History of endometrial ablation S/P wisdom tooth extraction History of appendectomy Social History household members: spouse current occupational status: employed Smoking Status: Never smoker alcohol intake: current details: social substance use type: does not use caffeine: Yes what type of physical activity do you participate in: walking and bicycling frequency: 3-4 times per week seatbelt use: always do you feel safe at home: Yes additional social history: [employer]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
--- NOTE | 2024-05-27 10:56 | HP.PCM_ITS ---
HPI - General General Date of Admission: 05/27/24 Date of Service: 05/27/24 Chief Complaint: Screening colonoscopy HPI Narrative SADE LORA, is a 63 F who presents today for screening colonoscopy. She had a colonoscopy last 15 years ago. That colonoscopy was normal. She has a family's of breast cancer and colon cancer. [facility] Medical History Wears contact lenses Post-menopausal Alcohol use Non-smoker Hypertension Essential (primary) hypertension Hemorrhoids Thyroid disorder Home Medications ?Medication ?Instructions ?Recorded ?Last Taken ?Type levothyroxine 100 mcg tablet 100 mcg PO DAILY 10/04/21 Unknown History multivitamin 1 tab PO DAILY 10/04/21 Unkn own History omega 7-nfg-rlw-fish oil 300 1 cap PO DAILY 12/01/22 U nknown History mg-1,000 mg capsule (Fish Oil) losartan 50 mg tablet 50 mg PO QDAY 12/04/23 Unkno wn History minoxidil 2.5 mg tablet 2.5 mg PO QDAY 12/04/23 Unkn own History cholecalciferol (vitamin D3) 25 25 mcg PO QDAY 5 Unknown History mcg (1,000 unit) capsule polyethylene glycol 3350 17 4 g PO QDAY 03/07/24 Unkno wn History gram/dose oral powder (Miralax) vitamin B complex 1 tab PO QDAY 03/07/24 Unkno wn History sodium,potassium,mag sulfates 17.5 480 ml PO ONCE #354 mL 05/22/24 Unknown Rx gram-3.13 gram-1.6 gram oral soln (Suprep Bowel Prep Kit) sodium,potassium,mag sulfates 17.5 See Rx Instructions PO .COMPLEX 05/24/24 Unknown Rx gram-3.13 gram-1.6 gram oral soln #354 mL (Suprep Bowel Prep Kit) Allergy/AdvReac Type Severity Reaction Status Date / Time lisinopril AdvReac Cough Verified 05/27/24 10:05 sulfites Allergy Mild Angioedema Uncoded 05/23/24 11:45 Family History Mother CVA (cerebral vascular accident) Father Hypertension Cancer LUNG Sister Breast cancer Grandfather Colon cancer Paternal, In his 70's Surgical History Hx of colonoscopy History of 2 sections H/O breast biopsy History of endometrial ablation S/P wisdom tooth extraction History of appendectomy Social History household members: spouse current occupational status: employed Smoking Status: Never smoker alcohol intake: current details: social substance use type: does not use caffeine: Yes what type of physical activity do you participate in: walking and bicycling frequency: 3-4 times per week seatbelt use: always do you feel safe at home: Yes additional 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 history: [employer]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 [employer] 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 [employer] [facility] [employer] Constitutional Constitutional: Denies fatigue, fever(s), poor appetite, weight gain or weight loss Gastrointestinal Gastrointestinal: Denies belching, bloating, change in bowel habits, change in stool character, chewing difficulty, coffee ground emesis, constipation, cramping, diarrhea, dyspepsia, dysphagia, early satiety, excessive flatus, fecal incontinence, heartburn, hematemesis, hematochezia, hemorrhoids, loose stools, melena, nausea, odynophagia, rectal bleeding, tenesmus, vomiting or weight changes Vital Signs Vital Signs Vital Signs: 05/27/24 10:10 05/27/24 10:10 05/27/24 10:54 Temperature 99.4 F H 99.4 F H Temperature Source Temporal Pulse Rate 76 76 Respiratory Rate 16 16 Respiratory Pattern Normal Blood Pressure 155/102 H 155/102 H Blood Pressure Mean 119 Blood Pressure Source Monitor Blood Pressure Position Sitting Blood Pressure Location Left Arm Pulse Ox 100 100 Oxygen Delivery Method Room Air Weight Weight: 156 lb 4.924 oz Body Mass Index (BMI) 23.8 Physical Exam Const alert, oriented x3, no apparent distress and healthy appearing General Appearance: cooperative GI normal to inspection, nondistended, normoactive bowel sounds, soft to palpation, non-tender and non-distended Percussion: normal to percussion Rectal Exam: deferred Assessment & Plan Assessment/Plan (1) Encounter for screening for malignant neoplasm of colon: PLAN: She was explained alternatives, risk and benefits including missed any bleeding, infection, sepsis, perforation, need for more surgery . She well have an ASA of 3.
--- NOTE | 2024-05-27 11:33 | OP.CCLET_ITS ---
05/27/2024 Panchito Hutton MD [address] [id number] Re : Colonoscopy procedure for Marleny De Luna Dear Dr. Hutton This procedure was performed on Monday, May 27, 2024. My impressions and recommendations are as follows: Impressions : - One 5 mm polyp in the sigmoid colon, removed with a jumbo cold forceps. Resected and retrieved. - Diverticulosis in the recto-sigmoid colon, in the sigmoid colon and in the descending colon. Recommendations : - Discharge patient to home. - Resume previous diet. - Continue present medications. - Await pathology results. - Repeat colonoscopy in 5 years for surveillance. My findings are described in the full procedure note, which is enclosed. If I can be of further assistance, please feel free to contact me at . Sincerely, Morro Max, 05/27/2024 11:33:07 AM This report has been signed electronically.
--- NOTE | 2024-05-27 11:33 | OP.COLON_ITS ---
Patient Name: Marleny De Luna Procedure Date: 05/27/2024 11:02 AM Date of : 1960 Age: 63 Procedure: Colonoscopy Indications: Screening for colorectal malignant neoplasm Providers: Morro Max DO Referring MD: Panchito Hutton MD Medicines: Monitored Anesthesia Care Patient Profile: This is a 63 year old female. Refer to note in patient chart for documentation of history and physical. Last Colonoscopy: more than 10 years ago. Complications: No immediate complications. Procedure: Pre-Anesthesia Assessment: - Prior to the procedure, a History and Physical was performed, and patient medications and allergies were reviewed. The patient is competent. The risks and benefits of the procedure and the sedation options and risks were discussed with the patient. All questions were answered and informed consent was obtained. Patient identification and proposed procedure were verified by the physician in the pre-procedure area. Mental Status Examination: alert and oriented. Airway Examination: normal oropharyngeal airway and neck mobility. Respiratory Examination: clear to auscultation. CV Examination: normal. Prophylactic Antibiotics: The patient does not require prophylactic antibiotics. Prior Anticoagulants: The patient has taken no anticoagulant or antiplatelet agents except for NSAID medication. ASA Grade Assessment: II - A patient with mild systemic disease. After reviewing the risks and benefits, the patient was deemed in satisfactory condition to undergo the procedure. The anesthesia plan was to use monitored anesthesia care (MAC). Immediately prior to administration of medications, the patient was re-assessed for adequacy to receive sedatives. The heart rate, respiratory rate, oxygen saturations, blood pressure, adequacy of pulmonary ventilation, and response to care were monitored throughout the procedure. The physical status of the patient was re-assessed after the procedure. After I obtained informed consent, the scope was passed under direct vision. Throughout the procedure, the patient's blood pressure, pulse, and oxygen saturations were monitored continuously. The Colonoscope was introduced through the anus and advanced to the cecum, identified by appendiceal orifice and ileocecal valve. The colonoscopy was performed without difficulty. The patient tolerated the procedure well. The quality of the bowel preparation was adequate. The ileocecal valve, appendiceal orifice, and rectum were photographed. Scope In: 11:14:13 AM Scope Withdrawal Time 0 hours 8 minutes 50 seconds Scope Out: 11:27:34 AM Total Procedure Duration Time 0 hours 13 minutes 21 seconds Findings: The perianal and digital rectal examinations were normal. A 5 mm polyp was found in the sigmoid colon. The polyp was sessile. The polyp was removed with a jumbo cold forceps. Resection and retrieval were complete. Verification of patient identification for the specimen was done. Estimated blood loss was minimal. Multiple small and large-mouthed diverticula were found in the recto-sigmoid colon, sigmoid colon and descending colon. Impression: - One 5 mm polyp in the sigmoid colon, removed with a jumbo cold forceps. Resected and retrieved. - Diverticulosis in the recto-sigmoid colon, in the sigmoid colon and in the descending colon. Recommendation: - Discharge patient to home. - Resume previous diet. - Continue present medications. - Await pathology results. - Repeat colonoscopy in 5 years for surveillance. Procedure Code(s): --- Professional --- 67874, Colonoscopy, flexible; with biopsy, single or multiple CPT copyright 2021 [employer]. All rights reserved. The codes documented in this report are preliminary and upon stair builder review may be revised to meet current compliance requirements. Morro Max DO 05/27/2024 11:33:07 AM This report has been signed electronically. Number of Addenda: 0 Note Initiated On: 05/27/2024 11:02 AM
--- NOTE | 2024-05-27 11:43 | PCM.POST.ANE ---
Anesthesia: Postop Eval I Current Vital Signs Temperature: 98.3 F Pulse Rate: 78 Blood Pressure: 124/83 Respiratory Rate: 16 Pulse Ox: 99 Oxygen Delivery Method: Room Air Assessment Airway patent: Yes Spontaneous unlabored respirations: Yes Mental status: Awake and Calm nausea: No Vomiting: No Anesthesia Complication: No Fluid Hydration Crystalloid volume administer (ml): 0 Total IV fluid infused: 0 Progress Note Anesthesia document: Postop Eval 1 completed: Yes
--- NOTE | 2024-05-27 11:51 | POSTOPAN2_ITS ---
Anesthesia Postop Eval I Sum Anesthesia Postop Eval I Summary Anesthesia Postop Eval I Summary: Anesthesia Postop Eval I: Assessment Summary Airway patent Yes 05/27/24 11:44 PLAN MANAGER.UF Spontaneous unlabored Yes 05/27/24 11:44 PLAN MANAGER.[facility] respirations Mental status Awake,Calm 05/27/24 11:44 PLAN MANAGER.[facility] nausea No 05/27/24 11:44 PLAN MANAGER.UF Vomiting No 05/27/24 11:44 PLAN MANAGER.[facility] Anesthesia Postop Eval I: Fluid Summary Crystalloid volume administer (ml) Colloids volume administered ( ml) Blood Product volume administered (ml) Total IV fluid infused Anesthesia Postop Eval I: Summary Notes Anesthesia Complication No 05/27/24 11:44 PLAN MANAGER.[facility] Anesthesia Complication Comment: Post-operative progress note Anesthesia: Postop Eval II Evaluation Mental status: Awake Pain Level: 0 nausea: No Vomiting: No
--- NOTE | 2024-05-27 11:51 | PCM.POSTANE2 ---
Anesthesia Postop Eval I Sum Anesthesia Postop Eval I Summary Anesthesia Postop Eval I Summary: Anesthesia Postop Eval I: Assessment Summary Airway patent Yes 05/27/24 11:44 LARRY OPERATOR.UF Spontaneous unlabored Yes 05/27/24 11:44 LARRY OPERATOR.[facility] respirations Mental status Awake,Calm 05/27/24 11:44 LARRY OPERATOR.[facility] nausea No 05/27/24 11:44 LARRY OPERATOR.UF Vomiting No 05/27/24 11:44 LARRY OPERATOR.[facility] Anesthesia Postop Eval I: Fluid Summary Crystalloid volume administer (ml) Colloids volume administered ( ml) Blood Product volume administered (ml) Total IV fluid infused Anesthesia Postop Eval I: Summary Notes Anesthesia Complication No 05/27/24 11:44 LARRY OPERATOR.[facility] Anesthesia Complication Comment: Post-operative progress note Anesthesia: Postop Eval II Evaluation Mental status: Awake Pain Level: 0 nausea: No Vomiting: No
--- NOTE | 2024-05-28 09:01 | PCM.POSTANE2 ---
Anesthesia Postop Eval I Sum Anesthesia Postop Eval I Summary Anesthesia Postop Eval I Summary: Anesthesia Postop Eval I: Assessment Summary Airway patent Yes 05/27/24 11:44 MARKELL Spontaneous unlabored Yes 05/27/24 11:44 MARKELL respirations Mental status Awake 05/27/24 11:51 nausea No 05/27/24 11:51 Vomiting No 05/27/24 11:51 Anesthesia Postop Eval I: Fluid Summary Crystalloid volume administer (ml) Colloids volume administered ( ml) Blood Product volume administered (ml) Total IV fluid infused Anesthesia Postop Eval I: Summary Notes Anesthesia Complication No 05/27/24 11:44 MARKELL Anesthesia Complication Comment: Post-operative progress note Anesthesia: Postop Eval II Evaluation Mental status: Awake and Calm Pain Level: 0 nausea: No Vomiting: No Complications Anesthesia Complication: No
== END 2024-05-27 12:25 | disposition home or self-care (01) ==
LOC: EN 09:46 → AC 09:47
PROVIDERS: PCP Family Medicine; Referring Provider Family Medicine; Visit Provider Internal Medicine Gastroenterology
PROC: 0DJD8ZZ Inspection of Lower Intestinal Tract, Via Natural or Artificial Opening Endoscopic (ICD-10-PCS; CPT 45378; principal; 2024-05-27 10:40)
DX: Z12.11 Encounter for screening for malignant neoplasm of colon (principal); K57.30 Diverticulosis of large intestine without perforation or abscess without bleeding; K63.5 Polyp of colon; Z80.0 Family history of malignant neoplasm of digestive organs; I10 Essential (primary) hypertension; Z79.899 Other long term (current) drug therapy; Z90.49 Acquired absence of other specified parts of digestive tract
CPT/HCPCS: 45380; 88305; 88341; 88342; J2405

== ENCOUNTER → 2024-09-02 | Outpatient (CLI) | payer OTHER, SELFPAY ==
[2024-09-02 12:08] LABS: Anion Gap 12 (5-15); BUN 13 mg/dL (4-19); BUN/Creat Ratio 16.2 RATIO (10-20); Calcium,Total 9.5 mg/dL (7.6-11.0); Carbon Dioxide 22.3 mmol/L (21.0-32.0); Chloride 97 mmol/L (98-108); Free T3 2.3 pg/mL (2.18-3.98); Glucose 103 mg/dL (70-99); Potassium 4.2 mmol/L (3.3-5.1)
--- OUTSIDE RECORDS SUMMARY | 2024-09-02 12:52 | XMS RPT_ITS | CCD ---
Author Organization [facility] Providers Care Overnight Caregiver Name Role Phone Gurmeet DECORATING MACHINE OPERATOR, Alyce S Unavailable Janeth Durand MD Unavailable [phone] Maninder Villalba Unavailable No, Physician Unavailable Unavailable VIAU, KIRTI SHANKS Unavailable Unavailable NO, PHYSICIAN Unavailable Unavailable VIAU, KIRTI SHANKS Unavailable Unavailable NO, PHYSICIAN Unavailable Unavailable VIAU, KIRTI SHANKS Unavailable Unavailable MANINDER VILLALBA Unavailable Unavailable VIAU, KIRTI SHANKS Unavailable Unavailable NO, PHYSICIAN Unavailable Unavailable Viau, Kirti R Unavailable Unavailable Viau, Kirti R Unavailable Unavailable Gurmeet DECORATING MACHINE OPERATOR, Alyce S Unavailable Dr. Panchito Hutton Primary Care Provider Dr. Panchito Hutton Referring Provider MARION Wells Attending Provider Dr. Maninder Macias Referring Provider Gurmeet CURRY NP-C Alyce Attending Provider Dr. Panchito Hutton Primary Care Provider Dr. Panchito Hutton Referring Provider MARION Wells Attending Provider Dr. Maninder Macias Referring Provider Gurmeet CURRY NP-C Alyce Attending Provider Dr. Panchito Hutton Primary Care Provider Dr. Panchito Hutton Primary Care Provider Dr. Panchito Hutton Referring Provider Dr. Janeth Durand Attending Provider Dr. Panchito Hutton Primary Care Provider Anni, Dr. Flanagan Referring Provider Dr. Janeth Durand Attending Provider Anni HARVEY, Dr. Flanagan Primary Care Provider Elisabeth Luong Attending Provider Unavailable Anni HARVEY, Dr. Flanagan Attending Provider Anni HARVEY, Dr. Flanagan Referring Provider Winter LEYVA, Dr. Hooker Attending Provider Winter LEYVA, Dr. Hooker Other Provider Panchito Hutton Primary Care Unavailable Morro Max Attending Unavailable Hutton, Panchito Referring Unavailable Hutton, Panchito Primary Care Unavailable Morro Max Consulting Unavailable Morro Max Attending Unavailable Hutton, Panchito Referring Unavailable Hutton, Panchito Primary Care Unavailable Elisabeth Luong Attending Unavailable Hutton, Panchito Primary Care Unavailable Latrice Garcia Attending Unavailabl e Hutton, Panchito Referring Unavailable Hutton, Panchito Primary Care Unavailable Hutton, Panchito Attending Unavailable Hutton, Panchito Primary Care Unavailable Hutton, Panchito Attending Unavailable Hutton, Panchito Referring Unavailable Hutton, Panchito Primary Care Unavailable Hutton, Panchito Attending Unavailable Hutton, Panchito Referring Unavailable Allergies Allergy Classification Reported Allergen(s) Allergy Type Date of Onset Reaction(s) Facility (3 sources) LOCAL PRESERVATIVE ANESTETICS drug allergy 7 [facility] (1 source) Lisinopril Drug Allergy 5 Cough [facility] (2 sources) Sulfites; Translations: [sulfites] Allergy to substance 5 Angioedema [facility] Comment on above: MULTI DOSE VIAL PRES ERVATIVES (1 source) Lidocaine Drug Allergy 4 [facility] (1 source) Lisinopril Drug Allergy 5 [facility] Medications Current Medications Medication Drug Class(es) Dates Sig (Normalized) Sig (Original) B-Complex With Vitamin C Tablet (3 sources) take 1 tablet by mouth once daily B-complex with vitamin C tablet Take 1 tablet by mouth daily. Active cholecalciferol 0.025 mg oral capsule (1 source) Vitamin D Start: 03-07-2024 take 1 capsule by mouth once daily Cholecalciferol (Vitamin D3) 25 mcg (1,000 unit) capsule Active 25 ug PO daily March 07, 2024 1:00am [place] 0-Hiv-Irz-Fish Oil (4 sources) Start: 12-01-2022 [place] 3-Wxp-Gvk-Fish Oil (Fish Oil) 300-1,000 mg capsule Active 1 NMA PO DAILY December 01, 2022 12:00am Start: 12-01-2022 take 300-1000 mg by mouth once daily [place] 7-Tvq-Zfi-Fish Oil (Fish Oil) 300-1,000 mg capsule Active 1 CAP PO DAILY November 30, 2022 11:00pm Start: 12-01-2022 take 300-1000 mg by mouth once daily [place] 5-Jzi-Aju-Fish Oil (Fish Oil) 300-1,000 mg capsule Active 1 CAP PO DAILY December 01, 2022 12:00am fish oil (3 sources) take 1 capsule by mouth once daily fish oil-omega-3 fatty acids 300-1,000 mg capsule Take 2 g by mouth daily. Active losartan potassium 50 mg oral tablet (1 source) Angiotensin 2 Receptor Samreen Start: 4 take 1 tablet by mouth once daily Losartan 50 mg tablet Active 50 mg PO daily December 04, 2023 12:00am Sodium,Potassium,Ma g Sulfates (2 sources) Start: 5 Sodium,Potassium,Mag Sulfates (Suprep Bowel Prep Kit) 17.5-3.13-1.6 gram recon soln Active 0 PO .COMPLEX 354 May 24, 2024 12:00am DILUTE; drink full amount early evening before AND next morning at least 2 hr before procedure; follow w 960 mL water PO Start: 05-22-2024 take 1 mL by mouth once Sodium ,Potassium,Mag Sulfates (Suprep Bowel Prep Kit) 17.5-3.13-1.6 gram recon soln Active 480 mL PO ONCE 354 May 22, 2024 12:00am minoxidil 2.5 mg oral tablet (1 source) Arteriolar Vasodilator Start: 12-04-2023 take 1 tablet by mouth once daily Minoxidil 2.5 mg tablet Active 2.5 mg PO daily December 04, 2023 12:00am Multivitamin preparation (8 sources) Start: 10-04-2021 take 1 tablet by mouth once daily Multivitamin Active 1 TABLET PO DAILY October 03, 2021 11:00pm Start: 10-04-2021 take 1 tablet by ady th once daily Multivitamin Active 1 TABLET PO DAILY October 04, 2021 12:00am Multivitamin tablet (1 source) Start: 10-04-2021 Multivitamin t ablet Active 1 {tbl} PO DAILY October 04, 2021 12:00am Multivitamin With Minerals Tablet (3 sources) take 1 tablet by mouth once daily multivitamin with minerals tablet Take 1 tablet by mouth daily. Active polyethylene glycol 3350 51159 mg powder for oral solution (1 source) Osmotic Laxative Start: 03-07-2024 Polyethylene Glycol 3350 (Miralax) 17 gram/dose powder Active 4 g PO daily March 07, 2024 1:00am levothyroxine sodium 0.1 mg oral tablet (20 sources) l-Thyroxine Start: 10-04-2021 take 1 tablet by mouth once daily Levothyroxine 100 mcg tablet Active 100 ug PO DAILY October 04, 2021 12:00am Start: 10-20-2017 End: 10-04-2021 take 1 tablet by mouth once daily Levothyroxine 88 mcg tablet Discontinued 88 ug PO DAILY October 20, 2017 12:00am October 04, 2021 9:27am Start: 09-16-2016 take 1 tablet by ady th once daily SYNTHROID 88 MCG TABS One tablet by mouth daily LEVOTHYROXINE SODIUM [id number] Janeth Durand MD Start: 09-16-2016 take 1 tablet by ady th once daily SYNTHROID 88 MCG TABS One tablet by mouth daily LEVOTHYROXINE SODIUM [id number] Janeth Durand MD Vitamin B Complex tablet (1 source) Start: 03-07-2024 Vitamin B Comp christofer tablet Active 1 {tbl} PO daily March 07, 2024 1:00am Completed/Discontinued Medications Medication Drug Class(es) Dates Sig (Normalized) Sig (Original) aspirin 81 mg delayed release oral tablet (1 source) Platelet Aggregation Inhibitor, Nonsteroidal Anti-inflammatory Drug Start: End: 04-10-202 5 Aspirin (Adult Low Dose Aspirin) 81 mg tablet,delayed release (DR/EC) Discontinued 81 mg PO daily March 07, 2024 1:00am May 23, 2024 11:23am cephalexin 500 mg oral capsule (1 source) Cephalosporin Antibacterial Start: 4 End: 4 take 1 capsule by mouth three times daily Cephalexin 500 mg capsule Discontinued 500 mg PO THREE TIMES A DAY May 07, 2023 12:00am December 04, 2023 2:06pm ergocalciferol 400 unt oral tablet (3 sources) Provitamin D2 Compound Start: 7 take 1 tablet by mouth once daily VITAMIN D2 400 UNIT TABS One tablet by mouth daily ERGOCALCIFEROL [id number] Janeth Durand MD linaclotide 0.072 mg oral capsule (9 sources) Guanylate Cyclase-C Agonist Start: 2 End: 2 take 1 capsule by mouth once daily Linaclotide (Linzess) 72 mcg capsule Discontinued 72 ug PO DAILY October 04, 2021 12:00am November 29, 2021 10:39am methylPREDNISolone 4 mg oral tablet (4 sources) Corticosteroid Start: 3 End: 3 take 1 tablet by mouth once Methylprednisolone (Medrol (Mason)) 4 mg tablets,dose pack Discontinued 4 mg PO per package directions 03 08July 05, 2022 12:00am July 10, 2022 12:00am July 11, 2022 12:04am MULTIPLE VITAMINS-MINERALS (2 sources) Start: 7 take 1 tablet by mouth once daily CALVIN MULTIVITAMIN FOR WOMEN TABS One tablet by mouth daily MULTIPLE VITAMINS-MINERALS [id number] Janeth Durand MD MULTIPLE VITAMINS-MINERALS (1 source) Start: 7 take 1 tablet by mouth once daily CALVIN MULTIVITAMIN FOR WOMEN TABS One tablet by mouth daily MULTIPLE VITAMINS-MINERALS [id number] Janeth Durand MD Drug Treatment Unknown - unknown (1 source) No information available. valACYclovir 1000 mg oral tablet (4 sources) Herpesvirus Nucleoside Analog DNA Polymerase Inhibitor, Herpes Simplex Virus Nucleoside Analog DNA Polymerase Inhibitor, Herpes Zoster Virus Nucleoside Analog DNA Polymerase Inhibitor Start: End: Valacyclovir 1 gram tablet Discontinued 1000 mg PO THREE TIMES A DAY 02 09July 05, 2022 12:00am July 11, 2022 12:00am July 12, 2022 12:04am Start: 07-05-2022 End: 07-12-2022 take 1000 mg by mouth three times daily Valacyclovir Discontinued 1000 MG PO THREE TIMES A DAY 02 09July 04, 2022 11:00pm July 11, 2022 11:04pm Problems Active Problems Problem Classification Problem Date Documented Da te Episodic/Chronic Essential hypertension (1 source) Essential (primary) hypertension; Translations: [Essential (primary) hypertension] Onset: 04-03-2024 Chronic Hemorrhoids (9 sources) Hemorrhoids; Translations: [Unspecified hemorrhoids] 10-04-2021 Episodic Other female genital disorders (4 sources) Vaginal discharge; Translations: [Other specified noninflammatory disorders of vagina] 12-01-2022 Episodic Other female genital disorders (3 sources) Other specified noninflammatory disorders of vagina; Translations: [Leukorrhea, not specified as infective] 12-01-2022 Episodic Other gastrointestinal disorders (9 sources) Constipation; Translations: [Constipation, unspecified] 10-04-2021 Episodic Other gastrointestinal disorders (4 sources) Constipation, unspecified; Translations: [Constipation, unspecified] Episodic Other screening for suspected conditions (not mental disorders or infectious disease) (5 sources) Patient encounter status; Translations: [Encounter for screening for malignant neoplasm of colon] Onset: 03-29-2024 03-07-2024 Episodic Residual codes; unclassified (4 sources) Family history of breast cancer; Translations: [Family history of malignant neoplasm of breast] 12-01-2022 Episodic Comment on above: empower screening, b reast MRI [facility] Breast [facility] Residual codes; unclassified (3 sources) Family history of malignant neoplasm of breast; Translations: [Family history of malignant neoplasm of breast] 12-01-2022 Episodic Skin and subcutaneous tissue infections (1 source) Bacterial infection of skin; Translations: [Local infection of the skin and subcutaneous tissue, unspecified] 05-07-2023 Episodic Spondylosis; intervertebral disc disorders; other back problems (9 sources) Degeneration of cervical intervertebral disc; Translations: [Other cervical disc displacement, unspecified cervical region] Onset: 12-08-2016 12-08-2016 Chronic Thyroid disorders (1 source) Hypothyroidism, unspecified; Translations: [Hypothyroidism, unspecified] Onset: 09-25-2023 Chronic Thyroid disorders (9 sources) Disorder of thyroid gland; Translations: [Disorder of thyroid, unspecified] 10-04-2021 Episodic Unclassified (2 sources) Screening for malignant neoplasm [...] for human papillomavirus (HPV)] Onset: 09-16-2016 09-16-2016 Viral infection (13 sources) Disease caused by 2019-nCoV; Translations: [COVID-19] 12-29-2020 Episodic Past or Other Problems Problem Classification Problem [...] Results Test Name Value Interpretation Reference Range Facility MR/[id number] [facility]2024 [facility] Medical Records Department [address] [place] [address] Anesthesia Postop Eval II 05/28/24 0901 MR#: [id number] Acct: [id number] Name: MARLENY LORA Rep #: [id number] : 1960 63 From: Jacob Muñoz MD PCP: Dr. Panchito Hutton MD Status:DEP [facility] Y Race: C Location: EN ADDENDUM by Dr. Jacob Muñoz MD on 05/28/24 at 0908 Addendum This patient had previously been seen by Dr. Darling postoperatively. 05/28/24 0908 Date Jacob Muñoz MD cc: * Signed Anesthesia Postop Eval I Sum Anesthesia Postop Eval I Summary Anesthesia Postop Eval I Summary: Anesthesia Postop Eval I: Assessment Summary Airway patent Yes 05/27/24 11:44 RADIOLOGY TEACHERJUANITO Spontaneous unlabored Yes 05/27/24 11:44 RADIOLOGY TEACHERJUANITO respirations Mental status Awake 05/27/24 11:51 nausea No 05/27/24 11:51 Vomiting No 05/27/24 11:51 Anesthesia Postop Eval I: Fluid Summary Crystalloid volume administer (ml) Colloids volume administered ( ml) Blood Product volume administered (ml) Total IV fluid infused Anesthesia Postop Eval I: Summary Notes Anesthesia Complication No 05/27/24 11:44 MARKELL Anesthesia Complication Comment: Post-operative progress note Anesthesia: Postop Eval II Evaluation Mental status: Awake and Calm Pain Level: 0 nausea: No Vomiting: No Complications Anesthesia Complication: No 05/28/24 09 Date Jacob Muñoz MD Cosigner Signature: Date CC: Signed Normal [facility] Colonoscopy Reporton 025 Colonoscopy Report [facility] Medical Records Department [address] [place] [address] Colonoscopy Report MR#: [id number] Acct: [id number] Name: MARLENY LORA Rep #: [id number] : 1960 63 From: Morro Max DO PCP: Dr. Panchito Hutton MD Status:REG [facility] Patient Name: Marleny Lora Procedure Date: 05/27/2024 11:02 AM Date of : 1960 Age: 63 Procedure: Colonoscopy Indications: Screening for colorectal malignant neoplasm Providers: Morro Max DO Referring MD: Panchito Hutton MD Medicines: Monitored Anesthesia Care Patient Profile: This is a 63 year old female. Refer to note in patient chart for documentation of history and physical. Last Colonoscopy: more than 10 years ago. Complications: No immediate complications. Procedure: Pre-Anesthesia Assessment: - Prior to the procedure, a History and Physical was performed, and patient medications and allergies were reviewed. The patient is competent. The risks and benefits of the procedure and the sedation options and risks were discussed with the patient. All questions were answered and informed consent was obtained. Patient identification and proposed procedure were verified by the physician in the pre-procedure area. Mental Status Examination: alert and oriented. Airway Examination: normal oropharyngeal airway and neck mobility. Respiratory Examination: clear to auscultation. CV Examination: normal. Prophylactic Antibiotics: The patient does not require prophylactic antibiotics. Prior Anticoagulants: The patient has taken no anticoagulant or antiplatelet agents except for NSAID medication. ASA Grade Assessment: II - A patient with mild systemic disease. After reviewing the risks and benefits, the patient was deemed in satisfactory condition to undergo the procedure. The anesthesia plan was to use monitored anesthesia care (MAC). Immediately prior to administration of medications, the patient was re-assessed for adequacy to receive sedatives. The heart rate, respiratory rate, oxygen saturations, blood pressure, adequacy of pulmonary ventilation, and response to care were monitored throughout the procedure. The physical status of the patient was re-assessed after the procedure. After I obtained informed consent, the scope was passed under direct vision. Throughout the procedure, the patient's blood pressure, pulse, and oxygen saturations were monitored continuously. The Colonoscope was introduced through the anus and advanced to the cecum, identified by appendiceal orifice and ileocecal valve. The colonoscopy was performed without difficulty. The patient tolerated the procedure well. The quality of the bowel preparation was adequate. The ileocecal valve, appendiceal orifice, and rectum were photographed. Scope In: 11:14:13 AM Scope Withdrawal Time 0 hours 8 minutes 50 seconds Scope Out: 11:27:34 AM Total Procedure Duration Time 0 hours 13 minutes 21 seconds Findings: The perianal and digital rectal examinations were normal. A 5 mm polyp was found in the sigmoid colon. The polyp was sessile. The polyp was removed with a jumbo cold forceps. Resection and retrieval were complete. Verification of patient identification for the specimen was done. Estimated blood loss was minimal. Multiple small and large-mouthed diverticula were found in the recto-sigmoid colon, sigmoid colon and descending colon. Impression: - One 5 mm polyp in the sigmoid colon, removed with a jumbo cold forceps. Resected and retrieved. - Diverticulosis in the recto-sigmoid colon, in the sigmoid colon and in the descending colon. Recommendation: - Discharge patient to home. - Resume previous diet. - Continue present medications. - Await pathology results. - Repeat colonoscopy in 5 years for surveillance. Procedure Code(s): --- Professional --- 51448, Colonoscopy, flexible; with biopsy, single or multiple CPT copyright 2021 [employer]. All rights reserved. The codes documented in this report are preliminary and upon vp talent management review may be revised to meet current compliance requirements. Morro Max DO 05/27/2024 11:33:07 AM This report has been signed electronically. Number of Addenda: 0 Note Initiated On: 05/27/2024 11:02 AM 05/27/24 1133 Date Morro Max DO Cosigner Signature: Date (if indicated) CC: Dr. Panchito Hutton MD; Morro Max DO Date Dictated: 05/27/24 1102 Date Transcribed: Hardwood Sawyer: JAIRON Signed Normal [facility] Immunohistochemical Stainson 05-27-2024 Immunohistochemical Stains -------- Patient Age/Sex Location Account Attending Physician -------- MARLENY LORA 63/F EN [id number] Morro Max DO -------- Specimen: [id number] Received: 05/28/24 Status: ALINA Pérez Num: [id number] Spec Type: COLON BX Subm Dr: Morro Max DO HEADER OPERATION: Colonoscopy with polypectomy PRE-OP DIAGNOSIS: Encounter for screening for malignant neoplasm of colon TISSUE SUBMITTED: A- Sigmoid polyp -------- MICROSCOPIC DIAGNOSIS A. Sigmoid colon, polyp, biopsy: * Polypoid colonic mucosa with bland spindle cells in the lamina propria. * The spindle cells are positive for SMA and negative for S100 and JOAQUIN, supporting a diagnosis of mucosal prolapse. * Negative for neoplasia. MICROSCOPIC DESCRIPTION Slides are reviewed. All matched controls reacted appropriately. These tests were developed and their performance characteristics determined by [facility]. They may not have been cleared or approved by the U.S. Food and Drug Administration. The FDA has determined that such clearance or approval is not necessary. The above immunohistochemical/d ualISH markers are ordered and reviewed by the Pathologist. GROSS DESCRIPTION A. Received in fixative is one container labeled with the patient's name and designated Sigmoid polyp. The specimen consists of one irregular fragment of light magallon soft tissue that measures 0.3 x 0.2 x 0.1 cm. The specimen is totally submitted in one cassette. 05/28/2024 CPT:17657 ,30668,12668b1 -------- Patient Age/Sex Location Account Attending Physician -------- MARLENY LORA 63/F EN [id number] Morro Max, DO -------- Signed (signature on file) Dr. Sandrine Sheldon MD 06/05/24 0928 -------- Normal [facility] Comment on above: Performed By: #### [facility] ####[facility] [address] [place], [address] MR/POSTOP.Chary 05-27-2024 MR/POSTOP.[facility] Medical Records Department [address] [address] Anesthesia Postop Eval I 05/27/24 1143 MR#: [id number] Acct: [id number] Name: MARLENY LORA CECY Rep #: [id number] : 1960 63 From: Carlos Alberto Clay RADIOLOGY TEACHER PCP: Dr. Panchito Hutton MD Status:[facility] Y Race: C Location: EN Anesthesia: Postop Eval I Current Vital Signs Temperature: 98.3 F Pulse Rate: 78 Blood Pressure: 124/83 Respiratory Rate: 16 Pulse Ox: 99 Oxygen Delivery Method: Room Air Assessment Airway patent: Yes Spontaneous unlabored respirations: Yes Mental status: Awake and Calm nausea: No Vomiting: No Anesthesia Complication: No Fluid Hydration Crystalloid volume administer (ml): 0 Total IV fluid infused: 0 Progress Note Anesthesia document: Postop Eval 1 completed: Yes 06/05/24 1656 Date Carlos Alberto Clay CRNA 05/28/24 0912 Cosigner Signature: Date Jacob Muñoz MD CC: Signed Normal [facility] MR/[id number] 05-27-2024 MR/POSTOPAN2 [facility] Medical Records Department [address] [place] [address] Anesthesia Postop Eval II 05/27/24 1151 MR#: [id number] Acct: [id number] Name: MARLENY LORA Rep #: [id number] : 1960 63 From: Humberto Darling MD PCP: Dr. Panchito Hutton MD Status:REG [facility] Y Race: C Location: [place] [address] Anesthesia Postop Eval I Sum Anesthesia Postop Eval I Summary Anesthesia Postop Eval I Summary: Anesthesia Postop Eval I: Assessment Summary Airway patent Yes 05/27/24 11:44 RADIOLOGY TEACHER.AHUF Spontaneous unlabored Yes 05/27/24 11:44 RADIOLOGY TEACHER.AHUF respirations Mental status Awake,Calm 05/27/24 11:44 RADIOLOGY TEACHER.AHUF nausea No 05/27/24 11:44 RADIOLOGY TEACHER.AHUF Vomiting No 05/27/24 11:44 RADIOLOGY TEACHER.AHUF Anesthesia Postop Eval I: Fluid Summary Crystalloid volume administer (ml) Colloids volume administered ( ml) Blood Product volume administered (ml) Total IV fluid infused Anesthesia Postop Eval I: Summary Notes Anesthesia Complication No 05/27/24 11:44 RADIOLOGY TEACHER.AHUF Anesthesia Complication Comment: Post-operative progress note Anesthesia: Postop Eval II Evaluation Mental status: Awake Pain Level: 0 nausea: No Vomiting: No 05/27/24 1151 Date Humberto Darling MD Cosigner Signature: Date CC: Signed Normal [facility] Basic Metabolic Profile (BMP )on 03-14-2024 BUN/CRE 14.3 RATIO Normal 12-02 [facility] Comment on above: Order Comment: Order Date: 03/04/24Order Info: 3016-3 - TSH Performed By: #### L 500.2500, L500.4100 ####[facility] [address] [place], [address] CA,Total 9.3 mg/dL Normal 8.5-10.1 [facility] Comment on above: Order Comment: Order Date: 03/04/24Order Info: 3016-3 - TSH Performed By: #### L 500.2500, L500.4100 ####[facility] [address] [place], [address] Chloride [Moles/Vol] 104 mmol/L Normal 98-107 [facility] Comment on above: Order Comment: Order Date: 03/04/24Order Info: 3016-3 - TSH Performed By: #### L 500.2500, L500.4100 ####[facility] [address] [place], [address] CO2 [Moles/Vol] 25.0 mmol/L Normal 21.0-32.0 [facility] Comment on above: Order Comment: Order Date: 03/04/24Order Info: 3015-3 - TSH Performed By: #### L 500.2500, L500.4100 ####[facility] [address] [place], [address] Creatinine [Mass/Vol] 0.91 mg/dL Normal 0.55-1.02 [facility] Comment on above: Order Comment: Order Date: 03/04/24Order Info: 3016-3 - TSH Result Comment: The validity of the calculated GFR GFRAA in patients over 70 years has not been determined. Clinical correlation is essential. Performed By: #### L 500.2500, L500.4100 ####[facility] [address] [place], [address] EST GFR - AA 81 mL/min Normal >60 [facility] Comment on above: Order Comment: Order Date: 03/04/24Order Info: 3016-3 - TSH Result Comment: Afri can Chinese GFR Calc Performed By: #### L 500.2500, L500.4100 ####[facility] [address] [place], [address] GAP 6 Normal 5-15 [facility] Comment on above: Order Comment: Order Date: 03/04/24Order Info: 3016-3 - TSH Performed By: #### L 500.2500, L500.4100 ####[facility] [address] [place], [address] GFR/1.73 sq M.predicted among non-blacks MDRD (S/P/Bld) [Vol rate/Area] 67 mL/min/{1.73_m2} Normal >60 [facility] Comment on above: Order Comment: Order Date: 03/04/24Order Info: 3016-3 - TSH Result Comment: Non- GFR Calc Performed By: #### L 500.2500, L500.4100 ####[facility] [address] [place], [address] Glucose [Mass/Vol] 93 mg/dL Normal 74-106 [facility] Comment on above: Order Comment: Order Date: 03/04/24Order Info: 3016-3 - TSH Performed By: #### L 500.2500, L500.4100 ####[facility] [address] [place], [address] Potassium [Moles/Vol] 4.5 mmol/L Normal 3.5-5.1 [facility] Comment on above: Order Comment: Order Date: 03/04/24Order Info: 3016-3 - TSH Performed By: #### L 500.2500, L500.4100 ####[facility] [address] [place], [address] Sodium [Moles/Vol] 134 mmol/L Low 136-145 [facility] Comment on above: Order Comment: Order Date: 03/04/24Order Info: 3016-3 - TSH Performed By: #### L 500.2500, L500.4100 ####[facility] [address] [place], [place], [id number] Urea nitrogen [Mass/Vol] 13 mg/dL Normal 7-18 [facility] Comment on above: Order Comment: Order Date: 03/04/24Order Info: 3016-3 - TSH Performed By: #### L 500.2500, L500.4100 ####[facility] [address] [place], [address] Blood urea nitrogen (BUN)/cr eatinine ratioOrdered By: Panchito Hutton on 03-14-2024 Urea nitrogen/Creatinine [Mass ratio] 14.3 mg/mg 10-20 [facility] Carbon dioxide measurementOr dered By: Panchito Hutton on 03-14-2024 CO2 [Moles/Vol] 25.0 mmol/L 21.0-32.0 [facility] Chloride measurementOrdered By: Panchito Hutton on 03-14-2024 Chloride [Moles/Vol] 104 mmol/L 98-107 [facility] Estimated glomerular filtrat ion rate (GFR) AmericanOrdered By: Panchito Hutton on 03-14-2024 Estimated GFR (MDRD) Amer 81 mL/min >60 [facility] Comment on above: GFR Calc Glomerular filtration rate ( GFR) estimationOrdered By: Panchito Hutton on 03-14-2024 Estimated GFR (MDRD) Non-Af Amer 67 mL/min >60 [facility] Comment on above: Non- GFR Calc Glucose measurementOrdered B y: Panchito Hutton on 03-14-2024 Glucose [Mass/Vol] 93 mg/dL 74-106 [facility] High density lipoprotein (HD L) measurementOrdered By: Panchito Hutton on 03-14-2024 Cholesterol in HDL [Mass/Vol] 88 mg/dL >40 [facility] Comment on above: The drugs N-Acetylcy steine and Metamizole may falsely depress this assay. Reference Range HDL <40 mg/dL Low HDL Cholesterol HDL >or= 60 mg/dL High HDL Cholesterol Lipid Profileon 01-30-2025 Cholesterol [Mass/Vol] 191 mg/dL Normal 200 [facility] Comment on above: Order Comment: Order Date: 03/04/24Order Info: 3016-3 - TSH Result Comment: <200 mg/dL Desirable 200-240 mg/dL Borderline >240 mg/dL High Risk Performed By: #### L 500.2500, L500.4100 ####[facility] [address] [place], [address] Cholesterol in HDL [Mass/Vol] 88 mg/dL Normal [facility] Comment on above: Order Comment: Order Date: 03/04/24Order Info: 3016-3 - TSH Result Comment: The drugs N-Acetylcysteine and Metamizole may falsely depress this assay. Reference Range HDL <40 mg/dL Low HDL Cholesterol HDL >or= 60 mg/dL High HDL Cholesterol Performed By: #### L 500.2500, L500.4100 ####[facility] [address] [place], [address] Cholesterol in LDL [Mass/Vol] 96 mg/dL Normal 0-130 [facility] Comment on above: Order Comment: Order Date: 03/04/24Order Info: 3016-3 - TSH Performed By: #### L 500.2500, L500.4100 ####[facility] [address] [place], [address] Cholesterol in VLDL [Mass/Vol] 7 mg/dL Normal 5-40 [facility] Comment on above: Order Comment: Order Date: 03/04/24Order Info: 3016-3 - TSH Performed By: #### L 500.2500, L500.4100 ####[facility] [address] [place], [address] Triglyceride [Mass/Vol] 34 mg/dL Normal [facility] Comment on above: Order Comment: Order Date: 03/04/24Order Info: 3016-3 - TSH Result Comment: The drugs N-Acetylcysteine and Metamizole may falsely depress this assay. Serum Triglycerides Reference Interval Normal <150 mg/dL Borderline high 150 - 199 mg/dL High 200 - 499 mg/dL Very High > or = 500 mg/dL Performed By: #### L 500.2500, L500.4100 ####[facility] [address] [place], [address] Low density lipoprotein (LDL ) cholesterol measurementOrdered By: Panchito Hutton on 03-14-2024 Cholesterol in LDL [Mass/Vol] 96 mg/dL 0-130 [facility] Potassium measurementOrdered By: Panchito Hutton on 03-14-2024 Potassium [Moles/Vol] 4.5 mmol/L 3.5-5.1 [facility] Serum anion gap measurementO rdered By: Panchito Hutton on 03-14-2024 Anion gap [Moles/Vol] 6 mmol/L 5-15 [facility] Serum or plasma calcium frances urement (mass/volume)Ordered By: Panchito Hutton on 03-14-2024 Calcium [Mass/Vol] 9.3 mg/dL 8.5-10.1 [facility] Serum or plasma cholesterol measurement (mass/volume)Ordered By: Panchito Hutton on 03-14-2024 Cholesterol [Mass/Vol] 191 mg/dL <200 [facility] Comment on above: <200 mg/dL Desirable 200-240 mg/dL Borderline >240 mg/dL High Risk Serum or plasma creatinine m easurement (mass/volume)Ordered By: Panchito Hutton on 03-14-2024 Creatinine [Mass/Vol] 0.91 mg/dL 0.55-1.02 [facility] Comment on above: The validity of the calculated GFR & GFRAA in patients over 70 years has not been determined. Clinical correlation is essential. Serum or plasma urea nitroge n measurement (mass/volume)Ordered By: Panchito Hutton on 03-14-2024 Urea nitrogen [Mass/Vol] 13 mg/dL 7-18 [facility] Sodium levelOrdered By: Panchito Hutton on 03-14-2024 Sodium [Moles/Vol] 134 mmol/L Low 136-145 [facility] TSH QnOrdered By: Panchito young on 03-14-2024 Thyroid Stimulating Hormone (TSH) 3.280 uIU/mL 0.358-3.740 [facility] Thyroid Stim Hormone (TSH)on 03-14-2024 TSH 3.280 uIU/mL Normal 0.358-3.740 [facility] Comment on above: Order Comment: Order Date: 03/04/24Order Info: 3016-3 - TSH Performed By: #### L 501.9520 ####[facility] [address] [place], [place], [address] Triglycerides measurementOrd ered By: Panchito Hutton on 03-14-2024 Triglyceride [Mass/Vol] 34 mg/dL <199 [facility] Comment on above: The drugs N-Acetylcy steine and Metamizole may falsely depress this assay.Serum Triglycerides Reference Interval Normal <150 mg/dL Borderline high 150 - 199 mg/dL High 200 - 499 mg/dL Very High > or = 500 mg/dL Very low density lipoprotein (VLDL) cholesterol measurementOrdered By: Panchito Hutton on 03-14-2024 VLDL Cholesterol 7 mg/dL 5-40 [facility] SCRN MAMM (CAD)W/ALISTAIR BILATo n 03-08-2024 SCRN MAMM (CAD)W/ALISTAIR BILAT [facility] Imaging Services [address] [place] [address] SCRN MAMM (CAD)W/ALISTAIR BILAT MR#: [id number] Acct: [id number] Name: MARLENY LORA Rep #: [id number] : 1960 F 63 From: Carmelo gomes MD PCP: Dr. Panchito Hutton MD Status: [facility] [address] Study: SCRN MAMM (CAD)W/ALISTAIR BILAT Date of Exam: 02/14 06/07 Exam# [id number] Ordering Dr: Panchito Hutton MD [id number] MAMMOGRAPHY - BILATERAL SCREENING REASON FOR EXAM: Female, 63 years old. Routine annual screening examination. PERTINENT HISTORY: Sister with breast cancer. History of bilateral stereotactic breast biopsies. TECHNIQUE: Digital bilateral breast alistair (3D mammographic acquisition) in the CC and MLO projections. 2-D mediolateral oblique (MLO) and craniocaudad (CC) views of both breasts were obtained. CAD: Full Field Digital Mammography with Computer Added Detection was performed. COMPARISON: Comparison is made with prior study dated December 28, 2022 and December 23, 2021. FINDINGS: Breast Composition: The breasts are extremely dense, which lowers the sensitivity of mammography. There are no dominant masses or suspicious calcifications. A tissue clip marker is once again seen in the deep central slightly medial aspect of the right breast. A tissue clip marker is also seen in the central slightly lateral aspect left breast. No other significant abnormalities are identified. There has been no significant change since the prior study. BI/SCRN MAMM (CAD)W/ALISTAIR BILAT IMPRESSION: Stable bilateral screening mammogram. Yearly follow-up mammogram recommended. (A) ASSESSMENT CATEGORY: BIRADS Category 2: Benign. A letter regarding these results will be sent to the patient by the facility within 30 days. Approximately 10% of breast cancers are not detected by mammography. A normal mammogram should not delay biopsy of a clinically suspicious abnormality. [id number] Electronically Signed: Carmelo Martinez MD at 14:16 EST , CC: Dr. 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 Latrice Mcfarland DO Age/Sex: 62/F Location: [facility] Status: Signed Intake Vital Signs 12/01/22 15:17 12/04/23 14:06 12/04/23 14:07 Height 5 ft 9 in 5 ft 9 in 5 ft 9 in Weight: 156 lb BMI 23.0 BP 156/93 H Intake Visit Reasons: Annual (FINGER BUFF [employer]WER) [employer] Required: No Is patient in pain?: No Allergies lidocaine Allergy (Mild, Verified 12/04/23 14:05) Hives sulfites Allergy (Mild, Uncoded 05/07/23 12:28) Angioedema Medications ???Medication ???Instructions ???Recorded ???Confirmed ???Type levothyroxine 100 mcg tablet ea PO 10/04/21 12/04/23 History multivitamin 1 tab PO DAILY 10/04/21 12/04/23 History omega 2-skd-ozi-fish oil 300 1 cap PO DAILY 12/01/22 12/04/23 History mg-1,000 mg capsule (Fish Oil) losartan 50 mg tablet 50 mg PO QDAY 12/04/23 12/04/23 History minoxidil 2.5 mg tablet 2.5 mg PO QDAY 12/04/23 12/04/23 History Post menopausal: No Patient : No : [facility] History Hemorrhoids Thyroid disorder Surgical History History of 2 sections H/O breast biopsy History of endometrial ablation S/P wisdom tooth extraction History of appendectomy Family History Mother CVA (cerebral vascular accident) Father Hypertension Cancer Sister Breast cancer Social History (Updated 12/04/23 @ 14:16 by Yolanda Joyce) Smoking Status: Never smoker alcohol intake: current details: social substance use type: does not use caffeine: Yes what type of physical activity do you participate in: walking and bicycling frequency: 3-4 times per week seatbelt use: always do you feel safe at home: Yes 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 Date Name GA/Weeks Outcome Route Bth Weight [facility]ant Gen [facility] FOB Unknown 1988 Miscarriage Unknown 1989 Otis 42 live - full term Unknown 1994 Misty 39 live - full term HPI Encounter for routine gynecological examination Details: MARLENY LORA is a 62 year old who presents for annual exam. Last PAP: 2021 History of abnormal PAP: lace burn out tender Last mammogram: 2022- dense breasts. has fhx breast cancer (oldest sis) braca was neg. History of abnormal mammogram: lace burn out tender Colon cancer screening: up to date Other preventative health care screenings: followed by pcp wants to try vaginal estrogen cream for atrophy Female Reproductive History Questions: metorrhagia: No, sexually active: Yes, dyspareunia: No and PCB: No Menopausal Symptoms: No hot flashes, No night sweats, No weight change, No mood changes, No difficulty concentrating, No sleep problems and No change in libido ROS Const Constitutional: Reports as per HPI; Denies fatigue, increased appetite, poor appetite, night sweats, weight gain or weight loss Cardio Card: Denies chest pain Resp Resp: Denies cough or dyspnea GI GI: Reports as per HPI; Denies abdominal pain, bloating, constipation, nausea or vomiting : Reports as per HPI and other; Denies difficulty voiding, dysuria, hematuria, hot flashes, nipple discharge, pelvic pain, prolapse symptoms, urinary frequency, urinary incontinence, urinary urgency, vaginal discharge, vaginal dryness, vaginal odor or vaginal pruritus Skin Skin/Breast: Denies changing lesions, breast mass, breast pain, breast skin changes or nipple discharge Psych Psych: Denies anxiety, change in libido, depression or difficulty concentrating Exam Const General: cooperative, healthy appearing, comfortable, no acute distress, well developed and well groomed HENIL Head: normal to inspection and normocephalic Ears: hearing grossly normal bilaterally and external ears normal Nose: external nose normal Face and sinus: normal facial exam Neck Neck: normal visual inspection, full ROM and no lymphadenopathy Thyroid: thyroid normal Chest Chest palpation inspection: normal inspection of the chest Breast inspection: normal inspection of the breasts and normal inspection of the axillae Breast palpation: normal palpation of the breasts, normal palpation of the axillae and no axillary ly (more content not included)... Normal [facility] Free T3on 09-05-2023 Free T3 [Mass/Vol] 2.2 pg/mL Normal 2.18-3.98 [facility] Comment on above: Performed By: #### L 500.4100, L501.9186, L500.4050, L501.9520, L501.47177, L506.0400 #### [facility] [address] [place], [address] Comprehensive Metabolic Prof ilon 09-04-2023 Albumin [Mass/Vol] 3.9 g/dL Normal 3.2-5.0 [facility] Comment on above: Performed By: #### L 500.4100, L501.9186, L500.4050, L501.9520, L501.94205, L506.0400 #### [facility] [address] [place], [address] Albumin/Globulin [Mass ratio] 1.0 {ratio} Normal 0.9-2.4 [facility] Comment on above: Performed By: #### L 500.4100, L501.9186, L500.4050, L501.9520, L501.56254, L506.0400 #### [facility] [address] [place], [address] ALK P 55 U/L Normal 45-117 [facility] Comment on above: Performed By: #### L 500.4100, L501.9186, L500.4050, L501.9520, L501.35609, L506.0400 #### [facility] [address] [place], [address] ALT [Catalytic activity/Vol] 37 U/L Normal 13-56 [facility] Comment on above: Performed By: #### L 500.4100, L501.9186, L500.4050, L501.9520, L501.76193, L506.0400 #### [facility] [address] [place], [address] AST [Catalytic activity/Vol] 30 U/L Normal 15-37 [facility] Comment on above: Performed By: #### L 500.4100, L501.9186, L500.4050, L501.9520, L501.83674, L506.0400 #### [facility] [address] [place], [address] Bilirubin [Mass/Vol] 0.40 mg/dL Normal 0.20-1.00 [facility] Comment on above: Result Comment: For patients on eltrombopag therapy, use of Dimension Lily TBIL is not recommended. Performed By: #### L 500.4100, L501.9186, L500.4050, L501.9520, L501.75306, L506.0400 #### [facility] [address] [place], [address] BUN/CRE 16.9 RATIO Normal 10-20 [facility] Comment on above: Performed By: #### L 500.4100, L501.9186, L500.4050, L501.9520, L501.55016, L506.0400 #### [facility] [address] [place], [address] CA,Total 8.8 mg/dL Normal 8.5-10.1 [facility] Comment on above: Performed By: #### L 500.4100, L501.9186, L500.4050, L501.9520, L501.98035, L506.0400 #### [facility] [address] [place], [address] Chloride [Moles/Vol] 102 mmol/L Normal 98-107 [facility] Comment on above: Performed By: #### L 500.4100, L501.9186, L500.4050, L501.9520, L501.03774, L506.0400 #### [facility] [address] [place], [address] CO2 [Moles/Vol] 25.0 mmol/L Normal 21.0-32.0 [facility] Comment on above: Performed By: #### L 500.4100, L501.9186, L500.4050, L501.9520, L501.09429, L506.0400 #### [facility] [address] [place], [address] Creatinine [Mass/Vol] 0.89 mg/dL Normal 0.55-1.02 [facility] Comment on above: Result Comment: The validity of the calculated GFR GFRAA in patients over 70 years has not been determined. Clinical correlation is essential. Performed By: #### L 500.4100, L501.9186, L500.4050, L501.9520, L501.13581, L506.0400 #### [facility] [address] [place], [address] EST GFR - AA 83 mL/min Normal >60 [facility] Comment on above: Result Comment: Afri can Chinese GFR Calc Performed By: #### L 500.4100, L501.9186, L500.4050, L501.9520, L501.95187, L506.0400 #### [facility] [address] [place], [address] GAP 7 Normal 5-15 [facility] Comment on above: Performed By: #### L 500.4100, L501.9186, L500.4050, L501.9520, L501.99133, L506.0400 #### [facility] [address] [place], [address] GFR/1.73 sq M.predicted among non-blacks MDRD (S/P/Bld) [Vol rate/Area] 69 mL/min/{1.73_m2} Normal >60 [facility] Comment on above: Result Comment: Non- GFR Calc Performed By: #### L 500.4100, L501.9186, L500.4050, L501.9520, L501.78012, L506.0400 #### [facility] [address] [place], [address] Globulin (S) [Mass/Vol] 3.8 g/dL Normal 2.2-4.2 [facility] Comment on above: Performed By: #### L 500.4100, L501.9186, L500.4050, L501.9520, L501.84057, L506.0400 #### [facility] [address] [place], [address] Glucose [Mass/Vol] 94 mg/dL Normal 74-106 [facility] Comment on above: Performed By: #### L 500.4100, L501.9186, L500.4050, L501.9520, L501.18820, L506.0400 #### [facility] [address] [place], [address] Potassium [Moles/Vol] 4.1 mmol/L Normal 3.5-5.1 [facility] Comment on above: Performed By: #### L 500.4100, L501.9186, L500.4050, L501.9520, L501.98094, L506.0400 #### [facility] [address] [place], [address] Sodium [Moles/Vol] 134 mmol/L Low 136-145 [facility] Comment on above: Performed By: #### L 500.4100, L501.9186, L500.4050, L501.9520, L501.73974, L506.0400 #### [facility] [address] [place], [address] T PROT 7.7 g/dL Normal 6.4-8.2 [facility] Comment on above: Performed By: #### L 500.4100, L501.9186, L500.4050, L501.9520, L501.33184, L506.0400 #### [facility] [address] [place], [address] Urea nitrogen [Mass/Vol] 15 mg/dL Normal 7-18 [facility] Comment on above: Performed By: #### L 500.4100, L501.9186, L500.4050, L501.9520, L501.46941, L506.0400 #### [facility] [address] [place], [address] Lipid Profileon 09-04-2023 Cholesterol [Mass/Vol] 173 mg/dL Normal 200 [facility] Comment on above: Result Comment: <200 mg/dL Desirable 200-240 mg/dL Borderline >240 mg/dL High Risk Performed By: #### L 500.4100, L501.9186, L500.4050, L501.9520, L501.17393, L506.0400 #### [facility] [address] [place], [address] Cholesterol in HDL [Mass/Vol] 83 mg/dL Normal [facility] Comment on above: Result Comment: The drugs N-Acetylcysteine and Metamizole may falsely depress this assay. Reference Range HDL <40 mg/dL Low HDL Cholesterol HDL >or= 60 mg/dL High HDL Cholesterol Performed By: #### L 500.4100, L501.9186, L500.4050, L501.9520, L501.06715, L506.0400 #### [facility] [address] [place], [address] Cholesterol in LDL [Mass/Vol] 77 mg/dL Normal 0-130 [facility] Comment on above: Performed By: #### L 500.4100, L501.9186, L500.4050, L501.9520, L501.04138, L506.0400 #### [facility] [address] [place], [address] Cholesterol in VLDL [Mass/Vol] 13 mg/dL Normal 5-40 [facility] Comment on above: Performed By: #### L 500.4100, L501.9186, L500.4050, L501.9520, L501.54691, L506.0400 #### [facility] [address] [place], [address] Triglyceride [Mass/Vol] 63 mg/dL Normal [facility] Comment on above: Result Comment: The drugs N-Acetylcysteine and Metamizole may falsely depress this assay. Serum Triglycerides Reference Interval Normal <150 mg/dL Borderline high 150 - 199 mg/dL High 200 - 499 mg/dL Very High > or = 500 mg/dL Performed By: #### L 500.4100, L501.9186, L500.4050, L501.9520, L501.36615, L506.0400 #### [facility] [address] [place], [address] T3 Total - Triiodothyronineo n 09-04-2023 T3 Total 0.82 ng/mL Normal 0.6-1.81 [facility] Comment on above: Performed By: #### L 500.4100, L501.9186, L500.4050, L501.9520, L501.88063, L506.0400 #### [facility] [address] [place], [address] T4 Free Directon 09-04-2023 T4 FREE DIRECT 1.08 ng/dL Normal 0.76-1.46 [facility] Comment on above: Performed By: #### L 500.4100, L501.9186, L500.4050, L501.9520, L501.97763, L506.0400 #### [facility] [address] [place], [address] Thyroid Stim Hormone (TSH)on 09-04-2023 TSH 2.25 uIU/mL Normal 0.358-3.74 [facility] Comment on above: Performed By: #### L 500.4100, L501.9186, L500.4050, L501.9520, L501.80374, L506.0400 #### [facility] [address] [place], [address] Basophil percentageOrdered B y: Panchito Hutton on 02-11-2023 Bilirubin [Mass/Vol] 0.60 mg/dL 0.20-1.00 [facility] Comment on above: For patients on eltr ombopag therapy, use of Dimension Lily TBIL is not recommended. Chloride [Moles/Vol] 106 mmol/L 98-107 [facility] Cholesterol [Mass/Vol] 191 mg/dL <200 [facility] Comment on above: <200 mg/dL Desirable 200-240 mg/dL Borderline >240 mg/dL High Risk Glucose [Mass/Vol] 97 mg/dL 74-106 [facility] Potassium [Moles/Vol] 4.4 mmol/L 3.5-5.1 [facility] Protein [Mass/Vol] 7.6 g/dL 6.4-8.2 [facility] Sodium [Moles/Vol] 135 mmol/L 136-145 [facility] Triglyceride [Mass/Vol] 56 mg/dL <199 [facility] Comment on above: The drugs N-Acetylcy steine and Metamizole may falsely depress this assay.Serum Triglycerides Reference Interval Normal <150 mg/dL Borderline high 150 - 199 mg/dL High 200 - 499 mg/dL Very High > or = 500 mg/dL Laboratory - Chemistry and C hemistry - challengeOrdered By: Panchito Hutton on 02-11-2023 ALP [Catalytic activity/Vol] 56 U/L 45-117 [facility] ALT [Catalytic activity/Vol] 26 U/L 13-56 [facility] CO2 [Moles/Vol] 26.0 mmol/L 21.0-32.0 [facility] Free T4 [Mass/Vol] 1.21 ng/dL 0.76-1.46 [facility] Globulin (S) [Mass/Vol] 3.8 g/dL 2.2-4.2 [facility] Urea nitrogen/Creatinine [Mass ratio] 12.1 mg/mg 10-20 [facility] No Panel InformationOrdered By: Panchito Hutton on 02-11-2023 Estimated GFR (MDRD) Amer 91 mL/min >60 [facility] Comment on above: GFR Calc Estimated GFR (MDRD) Non-Af Amer 75 mL/min >60 [facility] Comment on above: Non- GFR Calc Free Triiodothyronine (T3) pg/dL 2.5 pg/mL 2.18-3.98 [facility] Thyroid Stimulating Hormone (TSH) 1.68 uIU/mL 0.358-3.74 [facility] Serum or plasma albumin frances urement (mass/volume)Ordered By: Panchito Hutton on 02-11-2023 Albumin [Mass/Vol] 3.8 g/dL 3.2-5.0 [facility] Serum or plasma albumin/glob ulin mass ratioOrdered By: Panchito Hutton on 02-11-2023 Albumin/Globulin [Mass ratio] 1.0 {ratio} 0.9-2.4 [facility] Serum or plasma calcium frances urement (mass/volume)Ordered By: Panchito Hutton on 02-11-2023 Calcium [Mass/Vol] 8.5 mg/dL 8.5-10.1 [facility] Serum or plasma cholesterol in HDL measurement (mass/volume)Ordered By: Panchito Hutton on 02-11-2023 Cholesterol in HDL [Mass/Vol] 86 mg/dL >40 [facility] Comment on above: The drugs N-Acetylcy steine and Metamizole may falsely depress this assay. Reference Range HDL <40 mg/dL Low HDL Cholesterol HDL >or= 60 mg/dL High HDL Cholesterol Serum or plasma cholesterol in VLDL measurement (mass/volume)Ordered By: Panchito Hutton on 02-11-2023 Cholesterol in VLDL [Mass/Vol] 11 mg/dL 5-40 [facility] Serum or plasma creatinine m easurement (mass/volume)Ordered By: Panchito Hutton on 02-11-2023 Creatinine [Mass/Vol] 0.82 mg/dL 0.55-1.02 [facility] Comment on above: The validity of the calculated GFR & GFRAA in patients over 70 years has not been determined. Clinical correlation is essential. Serum or plasma low density lipoprotein (LDL) cholesterol measurement (mass/volume)Ordered By: Panchito Hutton on 02-11-2023 Cholesterol in LDL [Mass/Vol] 94 mg/dL 0-130 [facility] Serum or plasma urea nitroge n measurement (mass/volume)Ordered By: Panchito Hutton on 02-11-2023 Urea nitrogen [Mass/Vol] 10 mg/dL 7-18 [facility] Thin prep Papanicolaou smear with manual screeningOrdered By: Panchito Hutton on 02-11-2023 Thin prep Papanicolaou smear with manual screening 24 U/L 15-37 [facility] Thin prep Papanicolaou smear with manual screening 3 5-15 [facility] Gram stain for investigation of transfusion reactionOrdered By: Janeth Durand on 12-01-2022 Microscopic observation Gram stain Nom (Unsp spec) [facility] Microscopic observation Gram stain Nom (Unsp spec) [facility] No Panel InformationOrdered By: Janeth Durand on 12-01-2022 Miscellaneous Test Comment MAILED SPECIMEN [facility] Thin prep Papanicolaou smear with manual screeningOrdered By: Janeth Durand on 12-01-2022 Thin prep Papanicolaou smear with manual screening [facility] Thin prep Papanicolaou smear with manual screening [facility] Basophil percentageon 2021 Chloride [Moles/Vol] 102 mmol/L 98-107 [facility] Work Phone: Cholesterol [Mass/Vol] 183 mg/dL <200 [facility] Work Phone: Comment on above: <200 mg/dL Desirable 200-240 mg/dL Borderline >240 mg/dL High Risk Glucose [Mass/Vol] 89 mg/dL 74-106 [facility] Work Phone: Potassium [Moles/Vol] 4.0 mmol/L 3.5-5.1 [facility] Work Phone: Sodium [Moles/Vol] 134 mmol/L 136-145 [facility] Work Phone: Triglyceride [Mass/Vol] 48 mg/dL <199 [facility] Work Phone: Comment on above: The drugs N-Acetylcy steine and Metamizole may falsely depress this assay.Serum Triglycerides Reference Interval Normal <150 mg/dL Borderline high 150 - 199 mg/dL High 200 - 499 mg/dL Very High > or = 500 mg/dL Laboratory - Chemistry and C hemistry - challengeon 02-03-2022 CO2 [Moles/Vol] 24.0 mmol/L 21.0-32.0 [facility] Work Phone: Free T4 [Mass/Vol] 1.20 ng/dL 0.76-1.46 [facility] Work Phone: Urea nitrogen/Creatinine [Mass ratio] 16.4 mg/mg 10-20 [facility] Work Phone: No Panel Informationon 02-03 Estimated GFR (MDRD) Amer 96 mL/min >60 [facility] Work Phone: Comment on above: GFR Calc Estimated GFR (MDRD) Non-Af Amer 79 mL/min >60 [facility] Work Phone: Comment on above: Non- GFR Calc Free Triiodothyronine (T3) pg/dL 2.6 pg/mL 2.18-3.98 [facility] Work Phone: Thyroid Stimulating Hormone (TSH) 2.84 uIU/mL 0.358-3.74 [facility] Work Phone: Vitamin D 25-Hydroxy 53.0 ng/mL [facility] Work Phone: Comment on above: Vitamin D 25(OH) Sta tus Range Deficiency <20 ng/mL (50nmol/L) Insufficiency 20 - 30 ng/mL (50 - 75 nmol/L) Sufficiency 30 - 100 ng/mL (75 - 250 nmol/L) Toxicity >100 ng/mL (>250 nmol/L) Serum or plasma calcium frances urement (mass/volume)on 02-03-2022 Calcium [Mass/Vol] 9.1 mg/dL 8.5-10.1 [facility] Work Phone: Serum or plasma cholesterol in HDL measurement (mass/volume)on 02-03-2022 Cholesterol in HDL [Mass/Vol] 86 mg/dL >40 [facility] Work Phone: Comment on above: The drugs N-Acetylcy steine and Metamizole may falsely depress this assay. Reference Range HDL <40 mg/dL Low HDL Cholesterol HDL >or= 60 mg/dL High HDL Cholesterol Serum or plasma cholesterol in VLDL measurement (mass/volume)on 02-03-2022 Cholesterol in VLDL [Mass/Vol] 10 mg/dL 5-40 [facility] Work Phone: Serum or plasma creatinine m easurement (mass/volume)on 02-03-2022 Creatinine [Mass/Vol] 0.79 mg/dL 0.55-1.02 [facility] Work Phone: Comment on above: The validity of the calculated GFR & GFRAA in patients over 70 years has not been determined. Clinical correlation is essential. Serum or plasma low density lipoprotein (LDL) cholesterol measurement (mass/volume)on 02-03-2022 Cholesterol in LDL [Mass/Vol] 87 mg/dL 0-130 [facility] Work Phone: Serum or plasma urea nitroge n measurement (mass/volume)on 02-03-2022 Urea nitrogen [Mass/Vol] 13 mg/dL 7-18 [facility] Work Phone: Thin prep Papanicolaou smear with manual screeningon 02-03-2022 Thin prep Papanicolaou smear with manual screening 8 5-15 [facility] Work Phone: Cervical or vagninal specime n microscopic examination by cytology stain (reported ason 11-29-2021 Cytology report Cyto stain Doc (Cvx/Vag) Comment . [facility] Work Phone: Comment on above: The Pap smear is a s creening test designed to aid in thedetection of premalignant and malignant conditions of theuterine cervix. It is not a diagnostic procedure andshould not be used as the sole means of detecting cervicalcancer. Both false-positive and false-negative reports dooccur. Detection in cervical specim en of any of human papilloma virus (HPV) 16, 18, 31, 33,on 11-29-2021 HPV 16+18+31+33+35+39+45+5 1+52+56+58+59+66+68 DNA Probe+sig amp Ql (Cvx) Negative Negative [facility] Work Phone: Comment on above: This nucleic acid am plification test detects fourteen high- risk HPV types (16,18,31,33,35,39,45,51,52,56,58,59,66,68)without differentiation.Performed at: - [facility] [id number] Director: Brandy Ovalles MD, Phone: [phone] at: =[facility] [id number] Director: Brandy Ovalles MD, Phone: [phone] Laboratory - Cytologyon 11-13 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 [facility] Work Phone: Comment on above: Anju Rodriguez, Cyto technologist (ASCP) Laboratory - Miscellaneous t estson 11-29-2021 Service comment (Unsp spec) [Interp] Comment . [facility] Work Phone: Comment on above: This liquid based Th inPrep(R) pap test was screened withthe use of an image guided system. Service comment (Unsp spec) [Interp] . . [facility] Work Phone: No Panel Informationon 11-29 Pathology report final diagnosis Narrative Comment . [facility] Work Phone: Comment on above: NEGATIVE FOR INTRAEP ITHELIAL LESION OR MALIGNANCY. Absolute lymphocyte counton 10-04-2021 Lymphocytes Auto (Unsp spec) [#/Vol] 1.69 10*3/uL 0.83-4.51 [facility] Work Phone: [phone] Basophil percentageon 2021 Basophils/100 WBC (Bld) 0.8 % 0-1 [facility] Work Phone: Bilirubin [Mass/Vol] 0.70 mg/dL 0.20-1.00 [facility] Work Phone: Comment on above: For patients on eltr ombopag therapy, use of Dimension Lily TBIL is not recommended. Chloride [Moles/Vol] 101 mmol/L 98-107 [facility] Work Phone: Eosinophils/100 WBC (Bld) 2.3 % 0-5 [facility] Work Phone: Glucose [Mass/Vol] 103 mg/dL 74-106 [facility] Work Phone: Comment on above: Fasting Glucose resu lt from 100 to 125 mg/dL suggests IMPAIRED HOMEOSTASIS per A.D.A. criteria. Neutrophils (Bld) [#/Vol] 1.7 10*3/uL 2.0-7.7 [facility] Work Phone: Neutrophils/100 WBC (Bld) 42.7 % 47-70 [facility] Work Phone: [phone] Potassium [Moles/Vol] 4.2 mmol/L 3.5-5.1 [facility] Work Phone: [phone] Protein [Mass/Vol] 7.8 g/dL 6.4-8.2 [facility] Work Phone: [phone] Sodium [Moles/Vol] 133 mmol/L 136-145 [facility] Work Phone: [phone] WBC (Bld) [#/Vol] 3.9 10*3/uL 4.4-11.0 [facility] Work Phone: Blood erythrocytes count (nu mber/volume)on 10-04-2021 RBC (Bld) [#/Vol] 4.08 10*6/uL 4.2-5.4 [facility] Work Phone: Blood hemoglobin measurement (mass/volume)on 10-04-2021 Hemoglobin (Bld) [Mass/Vol] 13.1 g/dL 12.0-15.0 [facility] Work Phone: Blood lymphocytes/100 leukoc yteson 10-04-2021 Lymphocytes/100 WBC (Bld) 43.4 % 19-41 [facility] Work Phone: Blood monocytes/100 leukocyt eson 10-04-2021 Monocytes/100 WBC (Bld) 10.5 % 0-10 [facility] Work Phone: Blood platelet mean volumeon 10-04-2021 Platelet mean volume (Bld) [Entitic vol] 9.9 fL 6.2-12.0 [facility] Work Phone: Determination of erythrocyte mean corpuscular volume (MCV)on 10-04-2021 MCV (RBC) [Entitic vol] 89.2 fL 81-99 [facility] Work Phone: Erythrocyte sedimentation ra angi 10-04-2021 ESR (Bld) [Velocity] 9 mm/h 0-30 [facility] Work Phone: Hematocrit Auto (Bld) [Volum e fraction]on 10-04-2021 Hematocrit (Bld) [Volume fraction] 36.4 % 37-47 [facility] Work Phone: Laboratory - Chemistry and C hemistry - challengeon 10-04-2021 ALP [Catalytic activity/Vol] 53 U/L 45-117 [facility] Work Phone: ALT [Catalytic activity/Vol] 22 U/L 13-56 [facility] Work Phone: CO2 [Moles/Vol] 27.0 mmol/L 21.0-32.0 [facility] Work Phone: Globulin (S) [Mass/Vol] 3.6 g/dL 2.2-4.2 [facility] Work Phone: Urea nitrogen/Creatinine [Mass ratio] 11.0 mg/mg 10-20 [facility] Work Phone: Laboratory - Hematology and Cell countson 10-04-2021 Erythrocyte distribution width (RBC) [Entitic vol] 35.7 fL 35.1-43.9 [facility] Work Phone: Erythrocyte distribution width (RBC) [Ratio] 10.9 % 11.6-14.6 [facility] Work Phone: Immature granulocytes/100 WBC (Bld) 0.300 % 0.0-0.9 [facility] Work Phone: Comment on above: IG% - Immature Granu locytes (promyelocytes, myelocytes and metamyelocytes) > 1% indicates that a LEFT SHIFT is Present. MCH (RBC) [Entitic mass] 32.1 pg 27.0-32.0 [facility] Work Phone: Nucleated RBC/100 WBC (Bld) [Ratio] 0 % 0-5 [facility] Work Phone: MCHC Auto (RBC) [Mass/Vol]on 10-04-2021 MCHC (RBC) [Mass/Vol] 36.0 g/dL 32-36 [facility] Work Phone: No Panel Informationon 10-04 Estimated GFR (MDRD) Amer 92 mL/min >60 [facility] Work Phone: Comment on above: GFR Calc Estimated GFR (MDRD) Non-Af Amer 76 mL/min >60 [facility] Work Phone: Comment on above: Non- GFR Calc Platelets bldon 10-04-2021 Platelets (Bld) [#/Vol] 241 10*3/uL 150-450 [facility] Work Phone: Serum or plasma albumin frances urement (mass/volume)on 10-04-2021 Albumin [Mass/Vol] 4.2 g/dL 3.2-5.0 [facility] Work Phone: Serum or plasma albumin/glob ulin mass ratioon 10-04-2021 Albumin/Globulin [Mass ratio] 1.2 {ratio} 0.9-2.4 [facility] Work Phone: Serum or plasma calcium frances urement (mass/volume)on 10-04-2021 Calcium [Mass/Vol] 9.5 mg/dL 8.5-10.1 [facility] Work Phone: Serum or plasma creatinine m easurement (mass/volume)on 10-04-2021 Creatinine [Mass/Vol] 0.82 mg/dL 0.55-1.02 [facility] Work Phone: Comment on above: The validity of the calculated GFR & GFRAA in patients over 70 years has not been determined. Clinical correlation is essential. Serum or plasma urea nitroge n measurement (mass/volume)on 10-04-2021 Urea nitrogen [Mass/Vol] 9 mg/dL 7-18 [facility] Work Phone: Thin prep Papanicolaou smear with manual screeningon 10-04-2021 Thin prep Papanicolaou smear with manual screening 22 U/L 15-37 [facility] Work Phone: Thin prep Papanicolaou smear with manual screening 5 5-15 [facility] Work Phone: MRI CERVICAL SPINE W/O CONTo n 12-23-2016 MRI CERVICAL SPINE W/O CONT Final ReportAccession No: [id number] Performed: Dec 23 2016 11:01AMExamination: MRI CERVICAL SPINE W/O CONTClinical history: Neck pain with left shoulder and arm pain.MRI CERVICAL SPINE WITHOUT CONTRAST 12/23/2016 11:01 AMTECHNIQUE: Multiplanar multisequence MR imaging of the cervical spinewithout contrast.COMPARISON: None.FINDINGS:The vertebral body heights are maintained. No listhesis. No marrow edemaidentified.The visualized brain and spinal cord are grossly unremarkable appearance,however not imaged in detail.At C2-3, there is no significant disc displacement, central orneuroforaminal narrowing.At C3-4, no significant disc displacement. There is facet arthropathy anduncovertebral overgrowth noted on the right side which results in mildright neural foraminal narrowing.At C4-5, a disc osteophyte complex is present resulting in moderatecentral canal narrowing. There is also uncovertebral overgrowth resultsin bilateral neural foraminal narrowing, left greater than right.At C5-6, a disc osteophyte complex is present. Uncovertebral overgrowthis noted, right greater than left. This results in mild central canalnarrowing and bilateral neural foraminal narrowing.At C6-7, a disc osteophyte complex is present. Along with facetarthropathy and uncovertebral overgrowth this results in moderate centralcanal narrowing and neural foraminal narrowing.At C7-T1, there is a minimal disc bulge with mild central canalencroachment.The visualized paraspinal soft tissues reveals no focal signalabnormality.IMP RESSION:Multilevel degenerative disc disease and marginal osseous overgrowthresults in mild to moderate central canal narrowing and neural foraminalnarrowing from C4-C7.Interpreting Physician: ADRIANA ROJAS M.D.Trans: : cc: Normal [facility] Lab Report: PAP I-G HPV Hi R iskon 09-22-2016 GE use only - for LinkLogic import when terms are not otherwise specified Negative Invalid Interpretation Code Negative [facility] HPV HC,HGH RISK Negative Negative [facility] Office Visit: new annualon 0 09-16-2016 Documentation of current medications (procedure) Done Invalid Interpretation Code [facility] Fall risk assessment No Invalid Interpretation Code [facility] Hemoglobin presence in stool not done Invalid Interpretation Code [facility] Protein mass conc Done [facility] Tobacco smoking status NHIS Never Invalid Interpretation Code [facility] Tobacco smoking status NHIS Never smoker [facility] Tobacco use CPHS Never smoker Invalid Interpretation Code [facility] Office Visit: new annualon 0 08-14-2015 Breast Mammogram screening Normal Bilateral Invalid Interpretation Code [facility] Vital Signs Date Time Vital Sign Value Performing Clinician Faci lity 05-27-2024 11:50-0400 Body temperature 97.7 [degF] Dr. Panchito Hutton MD Work Phone: [facility] 05-27-2024 11:50-0400 Diastolic blood pressure 85 mm[Hg] Dr. Panchito Hutton MD Work Phone: [phone] [place] [address] 05-27-2024 11:50-0400 Heart rate 53 /min Dr. Panchito Hutton MD Work Phone: [phone] [address] 05-27-2024 11:50-0400 Respiratory rate 16 /min Dr. Panchito Hutton MD Work Phone: [phone] [place] [address] 05-27-2024 11:50-0400 SaO2% (BldA) [Mass fraction] 99 % Dr. Panchito Hutton MD Work Phone: [phone] [place] [address] 05-27-2024 11:50-0400 Systolic blood pressure 134 mm[Hg] Dr. Panchito Hutton MD Work Phone: [phone] [place] [address] 05-27-2024 10:10-0400 Body height 172.[address] Panchito Hutton MD Work Phone: [phone] [place] [address] 05-27-2024 10:10-0400 Body mass index (BMI) [Ratio] 23.8 kg/m2 Dr. Panchito Hutton MD Work Phone: [facility] 05-27-2024 10:10-0400 Body weight 70.[address] Panchito Hutton MD Work Phone: [facility] 03-07-2024 11:37-0500 Body mass index (BMI) [Ratio] 23.7 kg/m2 Dr. Panchito Hutton MD Work Phone: [facility] 03-07-2024 11:37-0500 Body weight 70.[address] Panchito Hutton MD Work Phone: [phone] [place] [address] 12-01-2022 15:17-0400 Body height 175.[address] Panchito Hutton Work Phone: [facility] 12-01-2022 15:17-0400 Body mass index (BMI) [Ratio] 23.1 kg/m2 Dr. Panchito Hutton Work Phone: [facility] 12-01-2022 15:17-0400 Body weight 70.[address] Panchito Hutton Work Phone: [facility] 11-29-2021 10:34-0400 Body height 175.[address] Panchito Hutton Work Phone: [facility] Work Phone: 11-29-2021 10:34-0400 Body mass index (BMI) [Ratio] 23.3 kg/m2 Dr. Panchito Hutton Work Phone: [facility] Work Phone: 11-29-2021 10:34-0400 Body weight 71.[address] Panchito Hutton Work Phone: [facility] Work Phone: 10-04-2021 09:43-0400 Diastolic blood pressure 97 mm[Hg] Dr. Panchito Hutton Work Phone: [facility] Work Phone: 10-04-2021 09:43-0400 Systolic blood pressure 146 mm[Hg] Dr. Panchito Hutton Work Phone: [facility] Work Phone: 10-04-2021 09:24-0400 Body height 175.[address] Panchito Hutton Work Phone: [facility] Work Phone: 10-04-2021 09:24-0400 Body mass index (BMI) [Ratio] 23.1 kg/m2 Dr. Panchito Hutton Work Phone: [facility] Work Phone: 10-04-2021 09:24-0400 Body temperature 97.9 [degF] Dr. Panchito Hutton Work Phone: [facility] Work Phone: 10-04-2021 09:24-0400 Body weight 70.[address] Panchito Hutton Work Phone: [facility] Work Phone: 10-04-2021 09:24-0400 Heart rate 61 /min Dr. Panchito Hutton Work Phone: [facility] Work Phone: 10-04-2021 09:24-0400 Respiratory rate 18 /min Dr. Panchito Hutton Work Phone: [facility] Work Phone: 10-04-2021 09:24-0400 SaO2% (BldA) [Mass fraction] 99 % Dr. Panchito Hutton Work Phone: [facility] Work Phone: 12-30-2016 11:20-0500 BMI (Body Mass Index) 22.74 kg/m2 [facility] 12-30-2016 11:20-0500 BP Diastolic 97 mm[Hg] [facility] Work [facility]: 12-30-2016 11:20-0500 BP Systolic 146 mm[Hg] [facility] Work [facility]: 12-30-2016 11:20-0500 Height 175.3 cm [facility] Work [facility]: 12-30-2016 11:20-0500 Pulse (Heart Rate) 63 /min [facility] Work [facility]: 12-30-2016 11:20-0500 Respiratory Rate 18 /min [facility] Work [facility]: 12-30-2016 11:20-0500 Weight 69.85 [facility] Work [facility]: 12-08-2016 16:17-0400 BMI (Body Mass Index) 22.74 kg/m2 [facility] 12-08-2016 16:17-0400 BP Diastolic 112 mm[Hg[facility]: 12-08-2016 16:17-0400 BP Systolic 160 mm[Hg] Kirti Salinas [facility] Work Phone: 12-08-2016 16:17-0400 Height 175.3 cm Kirti Salinas [facility] Work Phone: 12-08-2016 16:17-0400 Pulse (Heart Rate) 60 /[facility]: 12-08-2016 16:17-0400 Respiratory Rate 18 /[facility]: 12-08-2016 16:17-0400 [facility] 69.85 [facility]: 09-16-2016 09:53-0400 BMI (Body Mass Index) 22.77 kg/m2 Janeth Durand MD [facility] 09-16-2016 09:53-0400 Body Temperature 97.6 [degF] Janeth Durand MD [facility] 09-16-2016 09:53-0400 BP Diastolic 97 mm[Hg] Janeth Durand MD [facility] 09-16-2016 09:53-0400 BP Systolic 153 mm[Hg] Janeth Durand MD [facility] 09-16-2016 09:53-0400 Height 175.26 cm Janeth Durand MD [facility] 09-16-2016 09:53-0400 Pulse (Heart Rate) 54 /min Janeth Durand MD [facility] 09-16-2016 09:53-0400 Respiratory Rate 16 /min Janeth Durand MD [facility] 09-16-2016 09:53-0400 Weight 69.95 kg Janeth Durand MD [facility] Encounters Encounter Date Encounter Type Care Provider Facility Start: 05-27-2024 [facility] Facility:[facility] Start: 05-27-2024 Non-patient / Non-visit Morro Florentino nd DO -[facility] Start: 05-27-2024 End: 05-27-2024 Admission to same day surgery center Morro Max DO -Endoscopy Work Phone: Start: 05-27-2024 End: 05-27-[address] Panchito Hutton MD Work Phone: [facility] Work Phone: Start: 03-14-2024 End: 03-14-[address] [facility] Start: 03-14-2024 End: 03-14-2024 ambulatory Panchito Hutton Facility:[facility] Start: 03-08-2024 End: 03-08-[address] Panchito Hutton MD -Outpatient Breast Imaging Work Phone: Start: 03-07-2024 Non-patient / Non-visit Dr. Wolfgang Hutton MD Work Phone: [facility] Work Phone: Start: 03-07-2024 End: 03-08-2024 ambulatory Panchito Hutton Facility:[facility] Start: 12-04-2023 End: 12-04-2023 ambulatory Panchito Hutton Facility:[facility] Start: 09-04-2023 End: 09-04-2023 ambulatory Panchito Hutton Facility:[facility] Start: 02-11-2023 End: 02-11-[address] Panchito Hutton Work Phone: [facility] Work Phone: Start: 02-11-2023 End: 02-11-[address] Panchito Hutton Work Phone: [facility]-Laboratory Work Phone: Start: 01-06-2023 End: 01-06-[address] Panchito Hutton Work Phone: [facility]-Radiology, [place] Work Phone: Start: 12-28-2022 End: 12-28-[address] Panchito Hutton Work Phone: [facility] Work Phone: Start: 12-28-2022 End: 12-28-[address] Panchito Hutton Work Phone: [facility]-Outpatient Breast Imaging Work Phone: Start: 12-01-2022 End: 12-01-[address] Panchito Hutton Work Phone: [facility] Work Phone: Start: 12-01-2022 End: 12-01-[address] Panchito Hutton Work Phone: [facility] Work Phone: Start: 02-03-2022 End: 02-03-[address] Maninder Macias Work Phone: [facility] Work Phone: Start: 02-03-2022 End: 02-03-[address] Maninder Macias Work Phone: [facility] Start: 12-23-2021 End: 12-23-[address] Panchito Hutton Work Phone: [facility]-Outpatient Breast Imaging Start: 11-29-2021 End: 11-29-[address] Panchito Hutton Work Phone: [facility] Work Phone: Start: 11-29-2021 End: 11-29-[address] Panchito Hutton Work Phone: [facility] Start: 10-04-2021 End: 10-04-[address] Panchito Hutton Work Phone: [facility] Work Phone: Start: 10-04-2021 End: 10-04-[address] Panchito Hutton Work Phone: [facility] Start: 09-30-2021 End: 09-30-[address] Panchito Hutton Work Phone: [facility] Work Phone: Start: 09-30-2021 End: 09-30-[address] Panchito Hutton Work Phone: [facility], [place] Start: 12-30-2016 End: 12-30-2016 Ambulatory KIRTI SALINAS [facility] Start: 12-30-2016 Office outpatient vi sit 10 minutes Kirti Salinas Work Phone: [facility] Start: 12-23-2016 Ambulatory Kirti Salinas Facility :[place] Start: 12-23-2016 End: 12-23-2016 Ambulatory Kirti Salinas Work Phone: [facility] Start: 12-08-2016 Office outpatient ne w 30 minutes Kirti Salinas Work Phone: [facility] Start: 12-08-2016 End: 12-12-2016 Ambulatory KIRTI SALINAS [facility] Procedures Date Procedure Procedure Detail Performing Clinician Start: 05-27-[address] Panchito Hutton MD Work Phone: Start: 03-08-[address] Panchito Pierre Work Phone: Start: 01-06-2023 Plain chest X-ray Dr. Panchito Hutton Work Phone: Start: 12-28-[address] Panchito Hutton Work Phone: Start: 12-01-2022 Cytopathology procedure, preparation of smear, genital source Dr. Panchito Hutton Work Phone: Start: 12-01-2022 Investigation of transfusion reaction Dr. Panchito Hutton Work Phone: Start: 12-23-[address] Panchito Hutton Work Phone: Start: 10-04-2021 Computed tomography of abdomen and pelvis with contrast Dr. Panchito Hutton Work Phone: Start: 09-30-2021 Diagnostic radiography of abdomen Dr. 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 Start: 09-16-2016 End: 09-22-2016 Mammogram, screening Janeth durand MD Work Phone: Start: 09-16-2016 Screening for malignant neoplasm of cervix Screening for cervical cancer Alyce Levi DECORATING MACHINE OPERATOR Start: 09-16-2016 End: 09-22-2016 Transvaginal us, non-ob Janeth lam MD Work Phone: Start: 09-16-2016 End: 09-22-2016 Us exam, pelvic, complete Janeth Durand MD Work Phone: Start: 09-01-2016 End: 09-22-2016 Mammogram, screening Janeth durand MD Work Phone: Start: 09-01-2016 Screening for malignant neoplasm of breast Screening for breast cancer Alyce Levi DECORATING MACHINE OPERATOR Plan of Treatment Date Care Activity Detail Author Start: 05-27-2024 Patient discharge [facility] Start: 12-30-2016 Ambulatory 12/30/2016 Office Visit Orthopedic Surgery Viau, Kirti Shanks MD [address] [place] [address] [phone] [facility] Start: 10-14-2016 Influenza vaccination SEQUENTIAL INFLUENZA VACCINE (#1) [facility] Work Phone: Start: 09-16-2016 End: 09-16-2016 Appointment Appointment [facility] Start: 09-16-2016 End: 09-22-2016 Mammogram, screening Mammogram, Screening, both breasts [facility] Start: 09-16-2016 End: 09-22-2016 Transvaginal us, non-ob US Transvaginal [facility] Start: 09-16-2016 End: 09-22-2016 Us exam, pelvic, complete US Pelvis [facility] Start: 09-01-2016 End: 09-22-2016 Mammogram, screening Mammogram-Bilateral, Screening, Bilateral [facility] Start: 1960 HEPATITIS C SCREENING HEPATITIS C SCREENING [facility] Work Phone: Start: 1960 Screening colonoscopy COLONOSCOPY [facility] Work Phone: Start: 1960 Screening for malignant neoplasm of cervix PAP SMEAR [facility] Work Phone: Start: 1960 Tetanus vaccination TETANUS EVERY 10 YR [facility] Work Phone: CBC W Auto Different ial panel - Blood [facility] Work Phone: Colonoscopy [facility] MG Breast - bilatera l Screening [facility] Work Phone: End: 12-08-2017 MR Cervical Spine Without Contrast MR Cervical Spine Without Contrast Routine Herniated cervical disc 1 Occurrences starting 12/08/2016 until 12/08/2017 [facility] Work Phone: Patient referral [facility] Work Phone: Payers Date Payer Category Payer Self-pay [id number] 2023 Unknown [id number] 2016 Unknown [id number] Unknown [employer] [id number] Unknown ANTHEM [id number] Unknown [employer] BLUE ACCESS PPO [id number] Unknown [id number] Unknown [id number] Unknown [id number] Unknown [id number] Unknown [id number] Unknown [id number] Unknown [id number] Social History Date Type Detail Facility Start: 12-30-2016 End: 05-23-2024 Tobacco smoking status NHIS Never smoker [facility] Sex Assigned At Not on file [facility] Work Phone: Start: 10-04-2021 End: 12-01-2022 Tobacco smoking status NHIS Unknown if ever smoked [facility] Start: 1960 Sex Assigned At Female [facility] Start: 05-27-2024 Sex Female (finding) [facility] NEGATED: Highlighted row Not [facility] Goals Date Patient Goal Desired Activity /State Mental Status Date Assessment Result Facility 05-27-2024 Cognitive function Voice/Name [facility] Work Phone: Clinical Notes 11-29-2021 to 05-27-2024 Note Date & Type Note Facility 05-27-2024 Consult note [facility] 05-27-2024 Evaluation note Diagnosis Onset Date Resolution Encounter for screening for malignant neoplasm of colon acute May 27, 2024 9:44am [facility] Work Phone: [phone] Procedure note [facility] Medical Records Department [address] [place] [address] Colonoscopy Report MR#: [id number] Acct: [id number] Name: MARLENY LORA Rep #:[id number] : 1960 63 From: Morro Friend DO PCP: Dr. Panchito Hutton MD Status:REG S DC Patient Name: Marleny Lora Procedure Date: 05/27/2024 11:02 AM Date of : 1960 Age: 63 Procedure: Colonoscopy Indications: Screening for colorectal malignant neoplasm Providers: Morro Max DO Referring MD: Panchito Hutton MD Medicines: Monitored Anesthesia Care Patient Profile: This is a 63 year old female. Refer to note in patient chart for documentation of history and physical. Last Colonoscopy: more than 10 years ago. Complications: No immediate complications. Procedure: Pre-Anesthesia Assessment: - Prior to the procedure, a History and Physical was performed, and patient medications and allergies were reviewed. The patient is competent. The risks and benefits of the procedure and the sedation options and risks were discussed with the patient. All questions were answered and informed consent was obtained. Patient identification and proposed procedure were verified by the physician in the pre-procedure area. Mental Status Examination: alert and oriented. Airway Examination: normal oropharyngeal airway and neck mobility. Respiratory Examination: clear to auscultation. CV Examination: normal. Prophylactic Antibiotics: The patient does not require prophylactic antibiotics. Prior Anticoagulants: The patient has taken no anticoagulant or antiplatelet agents except for NSAID medication. ASA Grade Assessment: II - A patient with mild systemic disease. After reviewing the risks and benefits, the patient was deemed in satisfactory condition to undergo the procedure. The anesthesia plan was to use monitored anesthesia care (MAC). Immediately prior to administration of medications, the patient was re-assessed for adequacy to receive sedatives. The heart rate, respiratory rate, oxygen saturations, blood pressure, adequacy of pulmonary ventilation, and response to care were monitored throughout the procedure. The physical status of the patient was re-assessed after the procedure. After I obtained informed consent, the scope was passed under direct vision. Throughout the procedure, the patient's blood pressure, pulse, and oxygen saturations were monitored continuously. The Colonoscope was introduced through the anus and advanced to the cecum, identified by appendiceal orifice and ileocecal valve. The colonoscopy was performed without difficulty. The patient tolerated the procedure well. The quality of the bowel preparation was adequate. The ileocecal valve, appendiceal orifice, and rectum were photographed. Scope In: 11:14:13 AM Scope Withdrawal Time 0 hours 8 minutes 50 seconds Scope Out: 11:27:34 AM Total Procedure Duration Time 0 hours 13 minutes 21 seconds Findings: The perianal and digital rectal examinations were normal. A 5 mm polyp was found in the sigmoid colon. The polyp was sessile. The polyp was removed with a jumbo cold forceps. Resection and retrieval were complete. Verification of patient identification for the specimen was done. Estimated blood loss was minimal. Multiple small and large-mouthed diverticula were found in the recto-sigmoid colon, sigmoid colon and descending colon. Impression: - One 5 mm polyp in the sigmoid colon, removed with a jumbo cold forceps. Resected and retrieved. - Diverticulosis in the recto-sigmoid colon, in the sigmoid colon and in the descending colon. Recommendation: - Discharge patient to home. - Resume previous diet. - Continue present medications. - Await pathology results. - Repeat colonoscopy in 5 years for surveillance. Procedure Code(s): --- Professional --- 48358, Colonoscopy, flexible; with biopsy, single or multiple CPT copyright 2021 [employer]. All rights reserved. The codes documented in this report are preliminary and upon vp talent management review may be revised to meet current compliance requirements. Morro Max DO 05/27/2024 11:33:07 AM This report has been signed electronically. Number of Addenda: 0 Note Initiated On: 05/27/2024 11:02 AM 05/27/24 1133 Date _ Morro Max DO Cosigner Signature: Date (if indicated) CC: Dr. Panchito Hutton MD; Morro Max DO ~ Date Dictated: 05/27/24 1102 Date Transcribed: Hardwood Sawyer: JAIRON Signed [facility]04-14-2025 Procedure note [facility] Medical Records Department [address] [place] [address] Operative Report - CC Letter MR#: [id number] Acct: [id number] Name: MARLENY LORA Rep #:[id number] : 1960 63 From: Morro Max DO PCP: Dr. Panchito Hutton MD Status:REG S DC 05/27/2024 Panchito Hutton MD [address] [place] [address] Re : Colonoscopy procedure for Marleny Lora Dear Dr. Hutton This procedure was performed on Monday, May 27, 2024. My impressions and recommendations are as follows: Impressions : - One 5 mm polyp in the sigmoid colon, removed with a jumbo cold forceps. Resected and retrieved. - Diverticulosis in the recto-sigmoid colon, in the sigmoid colon and in the descending colon. Recommendations : - Discharge patient to home. - Resume previous diet. - Continue present medications. - Await pathology results. - Repeat colonoscopy in 5 years for surveillance. My findings are described in the full procedure note, which is enclosed. If I can be of further assistance, please feel free to contact me at . Sincerely, Morro Max DO 05/27/2024 11:33:07 AM This report has been signed electronically. 05/27/24 1133 Date _ Morro Morganigner Signature: Date (if indicated) CC: Dr. Panchito Hutton MD; Morro Max DO ~ Date Dictated: 05/27/24 1102 Date Transcribed: Hardwood Sawyer: RF Signed [facility]04-14-2025 History and physical note [facility] Medical Records Department [address] [place] [address] History & Physical Exam 05/27/24 1056 MR#: [id number] Acct: [id number] Name: MARLENY LORA Rep #:[id number] : 1960 63 From: Morro Max DO PCP: Dr. Panchito Hutton MD Status:REG S DC Location: [place] [address] HPI - General General Date of Admission: 05/27/24 Date of Service: 05/27/24 Chief Complaint: Screening colonoscopy HPI Narrative MARLENY LORA, is a 63 F who presents today for screening colonoscopy. She had a colonoscopy last 15 years ago. That colonoscopy was normal. She has a family'sof breast cancer and colon cancer. [facility] Medical History Wears contact lenses Post-menopausal Alcohol use Non-smoker Hypertension Essential (primary) hypertension Hemorrhoids Thyroid disorder Home Medications ?Medication ?Instructions ?Recorded ?Last Taken ?Type levothyroxine 100 mcg tablet 100 mcg PO DAILY 10/04/21 Unknown History multivitamin 1 tab PO DAILY 10/04/21 Unkn own History omega 1-ahz-zbe-fish oil 300 1 cap PO DAILY 12/01/22 U nknown History mg-1,000 mg capsule (Fish Oil) losartan 50 mg tablet 50 mg PO QDAY 12/04/23 Unkno wn History minoxidil 2.5 mg tablet 2.5 mg PO QDAY 12/04/23 Unkn own History cholecalciferol (vitamin D3) 25 25 mcg PO QDAY 5 Unknown History mcg (1,000 unit) capsule polyethylene glycol 3350 17 4 g PO QDAY 03/07/24 Unkno wn History gram/dose oral powder (Miralax) vitamin B complex 1 tab PO QDAY 03/07/24 Unkno wn History sodium,potassium,mag sulfates 17.5 480 ml PO ONCE #354 mL 05/22/24 Unknown Rx gram-3.13 gram-1.6 gram oral soln (Suprep Bowel Prep Kit) sodium,potassium,mag sulfates 17.5 See Rx Instructions PO .COMPLEX 05/24/24 Unknown Rx gram-3.13 gram-1.6 gram oral soln #354 mL (Suprep Bowel Prep Kit) Allergy/AdvReac Type Severity Reaction Status Date / Time lisinopril AdvReac Cough Verified 05/27/24 10:05 sulfites Allergy Mild Angioedema Uncoded 05/23/24 11:45 Family History Mother CVA (cerebral vascular accident) Father Hypertension Cancer LUNG Sister Breast cancer Grandfather Colon cancer Paternal, In his 70's Surgical History Hx of colonoscopy History of 2 sections H/O breast biopsy History of endometrial ablation S/P wisdom tooth extraction History of appendectomy Social History household members: spouse current occupational status: employed Smoking Status: Never smoker alcohol intake: current details: social substance use type: does not use caffeine: Yes what type of physical activity do you participate in: walking and bicycling frequency: 3-4 times per week seatbelt use: always do you feel safe at home: Yes 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 [employer] [facility] Constitutional Constitutional: Denies fatigue, fever(s), poor appetite, weight gain or weight loss Gastrointestinal Gastrointestinal: Denies belching, bloating, change in bowel habits, change in stool character, chewing difficulty, coffee ground emesis, constipation, cramping, diarrhea, dyspepsia, dysphagia, earlysatiety, excessive flatus, fecalincontinence, heartburn, hematemesis, hematochezia, hemorrhoids, loose stools, melena, nausea, odynophagia, rectal bleeding, tenesmus, vomiting or weight changes Vital Signs Vital Signs Vital Signs: 05/27/24 10:10 05/27/24 10:10 05/27/24 10:54 Temperature 99.4 F H 99.4 F H Temperature Source Temporal Pulse Rate 76 76 Respiratory Rate 16 16 Respiratory Pattern Normal Blood Pressure 155/102 H 155/102 H Blood Pressure Mean 119 Blood Pressure Source Monitor Blood Pressure Position Sitting Blood Pressure Location Left Arm Pulse Ox 100 100 Oxygen Delivery Method Room Air Weight Weight: 156 lb 4.924 oz Body Mass Index (BMI) 23.8 Physical Exam Const alert, oriented x3, no apparent distress and healthy appearing General Appearance: cooperative GI normal to inspection, nondistended, normoactive bowel sounds, soft to palpation,non-tender and non-distended Percussion: normal to percussion Rectal Exam: deferred Assessment & Plan Assessment/Plan (1) Encounter for screening for malignant neoplasm of colon: PLAN: She was explained alternatives, risk and benefits including missed any bleeding, infection, sepsis, perforation, need for more surgery . She wellhave an ASA of 3. 05/27/24 1057 Cosigner Signature (if applicable): CC: Dr. Panchito Hutton MD; Morro Max DO~ Signed [facility]04-14-2025 [facility] Medical Records Department [address] [place] [address] History Physical Exam 05/27/24 1056 MR#: [id number] Acct: [id number] Name: MARLENY LORA Rep #: [id number] : 1960 63 From: Morro Max DO PCP: Dr. Panchito Hutton MD Status:[facility] Location: [place] [address] HPI - General General Date of Admission: 05/27/24 Date of Service: 05/27/24 Chief Complaint: Screening colonoscopy HPI Narrative MARLENY LORA, is a 63 F who presents today for screening colonoscopy. She had a colonoscopy last 15 years ago. That colonoscopy was normal. She has a family's of breast cancer and colon cancer. [facility] Medical History Wears contact lenses Post-menopausal Alcohol use Non-smoker Hypertension Essential (primary) hypertension Hemorrhoids Thyroid disorder Home Medications ???Medication ???Instructions ???Recorded ???Last Taken ???Type levothyroxine 100 mcg tablet 100 mcg PO DAILY 10/04/21 Unknown History multivitamin 1 tab PO DAILY 10/04/21 Unknown Hi story omega 0-epu-nez-fish oil 300 1 cap PO DAILY 12/01/22 Unknown Hi story mg-1,000 mg capsule (Fish Oil) losartan 50 mg tablet 50 mg PO QDAY 12/04/23 Unknown His tory minoxidil 2.5 mg tablet 2.5 mg PO QDAY 12/04/23 Unknown Hi story cholecalciferol (vitamin D3) 25 25 mcg PO QDAY 03/07/24 Unknown Hi story mcg (1,000 unit) capsule polyethylene glycol 3350 17 4 g PO QDAY 03/07/24 Unknown Histo ry gram/dose oral powder (Miralax) vitamin B complex 1 tab PO QDAY 03/07/24 Unknown His tory sodium,potassium,mag sulfates 17.5 480 ml PO ONCE #354 mL 05/22/24 Unknown Rx gram-3.13 gram-1.6 gram oral soln (Suprep Bowel Prep Kit) sodium,potassium,mag sulfates 17.5 See Rx Instructions PO .COMPLEX 05/24/24 Unknown Rx gram-3.13 gram-1.6 gram oral soln #354 mL (Suprep Bowel Prep Kit) Allergy/AdvReac Type Severity Reaction Status Date / Time lisinopril AdvReac Cough Verified 05/27/24 10:05 sulfites Allergy Mild Angioedema Uncoded 05/23/24 11:45 Family History Mother CVA (cerebral vascular accident) Father Hypertension Cancer LUNG Sister Breast cancer Grandfather Colon cancer Paternal, In his 70's Surgical History Hx of colonoscopy History of 2 sections H/O breast biopsy History of endometrial ablation S/P wisdom tooth extraction History of appendectomy Social History household members: spouse current occupational status: employed Smoking Status: Never smoker alcohol intake: current details: social substance use type: does not use caffeine: Yes what type of physical activity do you participate in: walking and bicycling frequency: 3-4 times per week seatbelt use: always do you feel safe at home: Yes 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 [employer] [facility] Constitutional Constitutional: Denies fatigue, fever(s), poor appetite, weight gain or weight loss Gastrointestinal Gastrointestinal: Denies belching, bloating, change in bowel habits, change in stool character, chewing difficulty, coffee ground emesis, constipation, cramping, diarrhea, dyspepsia, dysphagia, early satiety, excessive flatus, fecal incontinence, heartburn, hematemesis, hematochezia, hemorrhoids, loose stools, melena, nausea, odynophagia, rectal bleeding, tenesmus, vomiting or weight changes Vital Signs Vital Signs Vital Signs: 05/27/24 10:10 05/27/24 10:10 05/27/24 10:54 Temperature 99.4 F H 99.4 F H Temperature Source Temporal Pulse Rate 76 76 Respiratory Rate 16 16 Respiratory Pattern Normal Blood Pressure 155/102 H 155/102 H Blood Pressure Mean 119 Blood Pressure Source Monitor Blood Pressure Position Sitting Blood Pressure Location Left Arm Pulse Ox 100 100 Oxygen Delivery Method Room Air Weight Weight: 156 lb 4.924 oz Body Mass Index (BMI) 23.8 Physical Exam Const alert, oriented x3, no apparent distress and healthy appearing General Appearance: cooperative GI normal to inspection, nondistended, normoactive bowel sounds, soft to palpation, non-tender and non- distended Percussion: normal to percussion Rectal Exam: deferred Assessment Plan Assessment/Plan (1) Encounter for screening for malignant neoplasm of colon: PLAN: She was explained alternatives, risk and benefits including missed any bleeding, infection, sepsis, perforation, need for more surgery . She well have an ASA of 3. 05/27/24 1057 Cosigner Signature (if applicable): CC: Dr. Panchito Hart (more content not included)...[facility] 05-27-2024 Consult note [facility] Medical Records Department [address] [place] [address] Pre-Anesthesia Evaluation 05/27/24 1053 MR#: [id number] Acct: [id number] Name: MARLENY LORA Rep #:[id number] : 1960 63 From: Carlos Alberto Grissom PCP: Dr. Panchito Hutton MD Status:REG S DC Y Race: C Location: [place] [address] ASA Classification* ASA Classification ASA Classification: 2 Assessment & Plan Anesthesia* Anesthesia Assessment Anesthesia Assessment: Discussed sedation and/or anesthesia options, risks, benefits, and alternatives with patient/parents/legal guardian/POA. Questions invited. The patient/parents/legal guardian/POA seems to understand and agrees to proceedwith anesthesia plan. Reviewed the physical assessment, medical history, allergy history and patient home medications list prior to surgery/procedure/anesthetic and documented any changes. Performed airway and anesthesia risk assessments. Anesthesia Type Anesthesia Type: MAC Anesthesia Focused Assessment* Temperature: 99.4 F Pulse Rate: 76 Blood Pressure: 155/102 Respiratory Rate: 16 Pulse Ox: 100 Airway Assessment Mouth opens: >3 cm Mallampati Score: II Focused Labs Anesthesia Preop lab: CBC WBC 3.9 K/mm3 (4.4-11.0) L 10/04/21 09:59 10/04/21 RBC 4.08 M/mm3 (4.2-5.4) L 10/04/21 09:59 10/04/21 Hgb 13.1 g/dL (12.0-15.0) 10/04/21 09:59 10/04/21 Hct 36.4 % (37-47) L 10/04/21 09:59 10/04/21 Plt Count 241 K/mm3 (150-450) 10/04/21 09:59 10/04/21 CHEMISTRY Potassium 4.5 mmol/L (3.5-5.1) 03/14/24 09:11 03/14/24 Sodium 134 mmol/L (136-145) L 03/14/24 09:11 03/14/24 BUN 13 mg/dL (7-18) 03/14/24 09:11 03/14/24 Creatinine 0.91 mg/dL (0.55-1.02) 03/14/24 09:11 03/14/24 Glucose 93 mg/dL (74-106) 03/14/24 09:11 03/14/24 TSH 3.280 uIU/mL (0.358-3.740) 03/14/24 09:11 02/15 COAG Pre-Assessment Diagnosis/Proposed Procedure Planned Operative Procedure(s): COLONOSCOPY Anesthesia History Anesthesia History - rater associate: Anesthesia History - rater associate Hx Hospitalization Any Problems With Anesthesia No 05/23/24 11:25 Cholinesterase deficiency No 05/23/24 11:25 You/Your Family Experience No 05/23/24 11:25 fever (hyperthermia) with Relationship Recent Exposure to Contagious No 05/27/24 10:10 Disease Does patient have nerve No 05/23/24 11:25 stimulator Patient instructed to have device shut off --Does patient have Pacemaker No 05/27/24 10:10 or ICD? When Was Last Pacemaker Check QUESTION #4 FULL TEXT: You/Your Family Experience fever (hyperthermia) with Anesthesia Last Oral Intake Last Oral intake: Last Oral Intake NPO since 07:30 05/27/24 10:10 Meds taken in AM with sips of No 05/27/24 10:10 water? Meds patient instructed to take am of surgery PONV PONV - rater associate: PONV - rater associate Female Yes 05/23/24 11:25 HX of Motion Sickness Yes 05/23/24 11:25 HX of N/V After Surgery No 05/23/24 11:25 Non-Smoker Yes 05/23/24 11:25 Duration of Surgery greater No 05/23/24 11:25 than 60 minutes Number of Risk Factors 3 05/23/24 11:25 PONV Score Moderate Risk 05/23/24 11:25 Height & Weight Height & Weight: Anesthesia: Height & Weight Height 5 ft 8 in 05/27/24 10:10 Weight: 70.9 kg 05/27/24 10:10 Body Mass Index (BMI) 23.8 05/27/24 10:10 Respiratory Assessment Respiratory Assessment - rater associate: Respiratory Tract Infection Hx - rater associate Hx Respiratory Tract Infection No 05/23/24 11:25 STOP Sleep Apnea STOP Sleep Apnea - rater associate: STOP Sleep Apnea - rater associate Hx Hypertension Yes 05/23/24 11:25 Hx Sleep Apnea No 05/23/24 11:25 CPAP BIPAP Do you snore loudly (louder No 05/23/24 11:25 than talking or can be heard Do you often feel tired/ No 05/23/24 11:25 fatigued/ sleepy during daytime? Has anyone observed you stop No 05/23/24 11:25 breathing during sleep? STOP Results Negative 05/23/24 11:25 QUESTION #5 FULL TEXT : Do you snore loudly (louder than talking or can be heard through closeddoors)? 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 Specify any problems Hx of Preganancy in last 3 No 05/23/24 11:25 Months Nurse Filling Out Transfusion [facility] 05/23/24 11:25 & Questions: Date: 05/23/24 05/23/24 11:25 Time: 11:05/23/24 11:25 Patient unable to answer at this time (ie. confused, unrespo /Reproduction History /Reproductive History - rater associate: /Reproductive Hx- rater associate Hx Now No 05/23/24 11:25 Gestational Age (in weeks): EDC: Hx Hx Para Hx Section SAB No 05/23/24 11:25 [facility] Medical History Wears contact lenses Post-menopausal Alcohol use Non-smoker Hypertension Essential (primary) hypertension Hemorrhoids Thyroid disorder Home Medications ?Medication ?Instructions ?Recorded ?Last Taken ?Type levothyroxine 100 mcg tablet 100 mcg PO DAILY 10/04/21 Unknown History multivitamin 1 tab PO DAILY 10/04/21 Unkn own History omega 3-smp-aql-fish oil 300 1 cap PO DAILY 12/01/22 U nknown History mg-1,000 mg capsule (Fish Oil) losartan 50 mg tablet 50 mg PO QDAY 12/04/23 Unkno wn History minoxidil 2.5 mg tablet 2.5 mg PO QDAY 12/04/23 Unkn own History cholecalciferol (vitamin D3) 25 25 mcg PO QDAY 5 Unknown History mcg (1,000 unit) capsule polyethylene glycol 3350 17 4 g PO QDAY 03/07/24 Unkno wn History gram/dose oral powder (Miralax) vitamin B complex 1 tab PO QDAY 03/07/24 Unkno wn History sodium,potassium,mag sulfates 17.5 480 ml PO ONCE #354 mL 05/22/24 Unknown Rx gram-3.13 gram-1.6 gram oral soln (Suprep Bowel Prep Kit) sodium,potassium,mag sulfates 17.5 See Rx Instructions PO .COMPLEX 05/24/24 Unknown Rx gram-3.13 gram-1.6 gram oral soln #354 mL (Suprep Bowel Prep Kit) Allergy/AdvReac Type Severity Reaction Status Date / Time lisinopril AdvReac Cough Verified 05/27/24 10:05 sulfites Allergy Mild Angioedema Uncoded 05/23/24 11:45 Family History Mother CVA (cerebral vascular accident) Father Hypertension Cancer LUNG Sister Breast cancer Grandfather Colon cancer Paternal, In his 70's Surgical History Hx of colonoscopy History of 2 sections H/O breast biopsy History of endometrial ablation S/P wisdom tooth extraction History of appendectomy Social History household members: spouse current occupational status: employed Smoking Status: Never smoker alcohol intake: current details: social substance use type: does not use caffeine: Yes what type of physical activity do you participate in: walking and bicycling frequency: 3-4 times per week seatbelt use: always do you feel safe at home: Yes 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 05/27/24 1054 RNA> Date _ Carlos Alberto Clay CRNA Cosigner Signature: Date CC: ~ Signed [facility]10-17-2022 NotePap Smear Specimen AdequacyOct2021 11:22amComment.Satisfactory for evaluation. No endocervical component is identified.[facility] A#[id number] [facility] Work Phone: Comment on above:Satisfactory for evaluation. No endocervical component is identified.11-29-2021 NotePap Smear Specimen Adequacy November 29, 2021 10:22amComment.Satisfactory for evaluation. No endocervical component is identified.[facility] A#[id number] [facility] Work Phone: Comment on above:Satisfactory for evaluation. No endocervical component is identified.11-29-2021 NotePap Smear Specimen Adequacy November 29, 2021 10:22amComment.Satisfactory for evaluation. No endocervical component is identified.[facility] A#[id number] Wert County Hospital Work Phone: Comment on above:Satisfactory for evaluation. No endocervical component is identified.Consult note Author Carlos Alberto Clay [facility] Note Date/Time May 27, 2024 10: 54am [facility] Medical Records Department [address] [place] [address] Pre-Anesthesia Evaluation 05/27/24 1053 MR#: [id number] Acct: [id number] Name: MARLENY LORA Rep #:[id number] : 1960 63 From: Carlos Alberto Grissom PCP: Dr. Panchito Hutton MD Status:REG S DC Y Race: C Location: [place] [address] ASA Classification* ASA Classification ASA Classification: 2 Assessment & Plan Anesthesia* Anesthesia Assessment Anesthesia Assessment: Discussed sedation and/or anesthesia options, risks, benefits, and alternatives with patient/parents/legal guardian/POA. Questions invited. The patient/parents/legal guardian/POA seems to understand and agrees to proceedwith anesthesia plan. Reviewed the physical assessment, medical history, allergy history and patient home medications list prior to surgery/procedure/anesthetic and documented any changes. Performed airway and anesthesia risk assessments. Anesthesia Type Anesthesia Type: MAC Anesthesia Focused Assessment* Temperature: 99.4 F Pulse Rate: 76 Blood Pressure: 155/102 Respiratory Rate: 16 Pulse Ox: 100 Airway Assessment Mouth opens: >3 cm Mallampati Score: II Focused Labs Anesthesia Preop lab: CBC WBC 3.9 K/mm3 (4.4-11.0) L 10/04/21 09:59 10/04/21 RBC 4.08 M/mm3 (4.2-5.4) L 10/04/21 09:59 10/04/21 Hgb 13.1 g/dL (12.0-15.0) 10/04/21 09:59 10/04/21 Hct 36.4 % (37-47) L 10/04/21 09:59 10/04/21 Plt Count 241 K/mm3 (150-450) 10/04/21 09:59 10/04/21 CHEMISTRY Potassium 4.5 mmol/L (3.5-5.1) 03/14/24 09:11 03/14/24 Sodium 134 mmol/L (136-145) L 03/14/24 09:11 03/14/24 BUN 13 mg/dL (7-18) 03/14/24 09:11 03/14/24 Creatinine 0.91 mg/dL (0.55-1.02) 03/14/24 09:11 03/14/24 Glucose 93 mg/dL (74-106) 03/14/24 09:11 03/14/24 TSH 3.280 uIU/mL (0.358-3.740) 03/14/24 09:11 02/15 COAG Pre-Assessment Diagnosis/Proposed Procedure Planned Operative Procedure(s): COLONOSCOPY Anesthesia History Anesthesia History - rater associate: Anesthesia History - rater associate Hx Hospitalization Any Problems With Anesthesia No 05/23/24 11:25 Cholinesterase deficiency No 05/23/24 11:25 You/Your Family Experience No 05/23/24 11:25 fever (hyperthermia) with Relationship Recent Exposure to Contagious No 05/27/24 10:10 Disease Does patient have nerve No 05/23/24 11:25 stimulator Patient instructed to have device shut off --Does patient have Pacemaker No 05/27/24 10:10 or ICD? When Was Last Pacemaker Check QUESTION #4 FULL TEXT: You/Your Family Experience fever (hyperthermia) with Anesthesia Last Oral Intake Last Oral intake: Last Oral Intake NPO since 07:30 05/27/24 10:10 Meds taken in AM with sips of No 05/27/24 10:10 water? Meds patient instructed to take am of surgery PONV PONV - rater associate: PONV - rater associate Female Yes 05/23/24 11:25 HX of Motion Sickness Yes 05/23/24 11:25 HX of N/V After Surgery No 05/23/24 11:25 Non-Smoker Yes 05/23/24 11:25 Duration of Surgery greater No 05/23/24 11:25 than 60 minutes Number of Risk Factors 3 05/23/24 11:25 PONV Score Moderate Risk 05/23/24 11:25 Height & Weight Height & Weight: Anesthesia: Height & Weight Height 5 ft 8 in 05/27/24 10:10 Weight: 70.9 kg 05/27/24 10:10 Body Mass Index (BMI) 23.8 05/27/24 10:10 Respiratory Assessment Respiratory Assessment - rater associate: Respiratory Tract Infection Hx - rater associate Hx Respiratory Tract Infection No 05/23/24 11:25 STOP Sleep Apnea STOP Sleep Apnea - rater associate: STOP Sleep Apnea - rater associate Hx Hypertension Yes 05/23/24 11:25 Hx Sleep Apnea No 05/23/24 11:25 CPAP BIPAP Do you snore loudly (louder No 05/23/24 11:25 than talking or can be heard Do you often feel tired/ No 05/23/24 11:25 fatigued/ sleepy during daytime? Has anyone observed you stop No 05/23/24 11:25 breathing during sleep? STOP Results Negative 05/23/24 11:25 QUESTION #5 FULL TEXT : Do you snore loudly (louder than talking or can be heard through closed doors)? 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 Specify any problems Hx of Preganancy in last 3 No 05/23/24 11:25 Months Nurse Filling Out Transfusion [facility] 05/23/24 11:25 & Questions: Date: 05/23/24 05/23/24 11:25 Time: 11:31 05/23/24 11:25 Patient unable to answer at this time (ie. confused, unrespo /Reproduction History /Reproductive History - rater associate: /Reproductive Hx- rater associate Hx Now No 05/23/24 11:25 Gestational Age (in weeks): EDC: Hx Hx Para Hx Section SAB No 05/23/24 11:25 PFSH Medical History Wears contact lenses Post-menopausal Alcohol use Non-smoker Hypertension Essential (primary) hypertension Hemorrhoids Thyroid disorder Home Medications ?Medication ?Instructions ?Recorded ?Last Taken ?Type levothyroxine 100 mcg tablet 100 mcg PO DAILY 10/04/21 Unknown History multivitamin 1 tab PO DAILY 10/04/21 Unkn own History omega 5-dbf-jmo-fish oil 300 1 cap PO DAILY 12/01/22 U nknown History mg-1,000 mg capsule (Fish Oil) losartan 50 mg tablet 50 mg PO QDAY 12/04/23 Unkno wn History minoxidil 2.5 mg tablet 2.5 mg PO QDAY 12/04/23 Unkn own History cholecalciferol (vitamin D3) 25 25 mcg PO QDAY 5 Unknown History mcg (1,000 unit) capsule polyethylene glycol 3350 17 4 g PO QDAY 03/07/24 Unkno wn History gram/dose oral powder (Miralax) vitamin B complex 1 tab PO QDAY 03/07/24 Unkno wn History sodium,potassium,mag sulfates 17.5 480 ml PO ONCE #354 mL 05/22/24 Unknown Rx gram-3.13 gram-1.6 gram oral soln (Suprep Bowel Prep Kit) sodium,potassium,mag sulfates 17.5 See Rx Instructions PO .COMPLEX 05/24/24 Unknown Rx gram-3.13 gram-1.6 gram oral soln #354 mL (Suprep Bowel Prep Kit) Allergy/AdvReac Type Severity Reaction Status Date / Time lisinopril AdvReac Cough Verified 05/27/24 10:05 sulfites Allergy Mild Angioedema Uncoded 05/23/24 11:45 Family History Mother CVA (cerebral vascular accident) Father Hypertension Cancer LUNG Sister Breast cancer Grandfather Colon cancer Paternal, In his 70's Surgical History Hx of colonoscopy History of 2 sections H/O breast biopsy History of endometrial ablation S/P wisdom tooth extraction History of appendectomy Social History household members: spouse current occupational status: employed Smoking Status: Never smoker alcohol intake: current details: social substance use type: does not use caffeine: Yes what type of physical activity do you participate in: walking and bicycling frequency: 3-4 times per week seatbelt use: always do you feel safe at home: Yes 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 05/27/24 1054 <Electronically signed by Carlos Alberto Arce RNA> Date _ Carlos Alberto Clay CRNA Cosigner Signature: Date CC: ~ Signed [facility] Work Phone: Consult note Author Humberto Darling [facility] Note Date/Time May 27, 2024 12: 25pm [facility] Medical Records Department [address] [place] [address] Anesthesia Postop Eval II 05/27/24 1151 MR#: [id number] Acct: [id number] Name: MARLENY LORA Rep #:[id number] : 1960 63 From: Humberto Darling MD PCP: Dr. Panchito Hutton MD Status:REG S DC Y Race: C Location: [place] [id number] Anesthesia Postop Eval I Sum Anesthesia Postop Eval I Summary Anesthesia Postop Eval I Summary: Anesthesia Postop Eval I: Assessment Summary Airway patent Yes 05/27/24 11:44 RADIOLOGY [email or web address].[email or web address] Spontaneous unlabored Yes 05/27/24 11:44 RADIOLOGY TEACHER.ISA respirations Mental status Awake,Calm 05/27/24 11:44 RADIOLOGY TEACHER.SIMONE nausea No 05/27/24 11:44 RADIOLOGY TEACHER.[email or web address] Vomiting No 05/27/24 11:44 RADIOLOGY TEACHER.ISA Anesthesia Postop Eval I: Fluid Summary Crystalloid volume administer (ml) Colloids volume administered ( ml) Blood Product volume administered (ml) Total IV fluid infused Anesthesia Postop Eval I: Summary Notes Anesthesia Complication No 05/27/24 11:44 RADIOLOGY [email or web address].ISA Anesthesia Complication Comment: Post-operative progress note Anesthesia: Postop Eval II Evaluation Mental status: Awake Pain Level: 0 nausea: No Vomiting: No 05/27/24 1151 <Electronically signed by Humberto Darling MD > Date _ Humberto Louiser Signature: Date CC: ~ Signed [facility] Work Phone: Evaluation note* Diagnosis Onset Date Resolution Status Constipation acute [facility] Work Phone: Evaluation note* Diagnosis Onset Date Resolution Status Constipation acute Encounter for routine gynecological examination noneactive [facility] Work Phone: Evaluation note* Diagnosis Onset Date Resolution Status Encounter for routine gynecological examination noneactive [facility] Work Phone: Evaluation note* Diagnosis Onset Date Resolution Status Family history of breast cancer acute Vaginal discharge acute Encounter for routine gynecological examination noneactive [facility] Work Phone: History and physical note Author Morro Max [facility] Note Date/Time May 27, 2024 10: 57am [facility] Medical Records Department [address] [place] [id number] History & Physical Exam 05/27/24 1056 MR#: [id number] Acct: [id number] Name: MARLENY LORA Rep #:[id number] : 1960 63 From: Morro Max DO PCP: Dr. Panchito Hutton MD Status:REG S DC Location: [address] - General General Date of Admission: 05/27/24 Date of Service: 05/27/24 Chief Complaint: Screening colonoscopy HPI Narrative MARLENY LORA, is a 63 F who presents today for screening colonoscopy. She had a colonoscopy last 15 years ago. That colonoscopy was normal. She has a family'sof breast cancer and colon cancer. [facility] Medical History Wears contact lenses Post-menopausal Alcohol use Non-smoker Hypertension Essential (primary) hypertension Hemorrhoids Thyroid disorder Home Medications ?Medication ?Instructions ?Recorded ?Last Taken ?Type levothyroxine 100 mcg tablet 100 mcg PO DAILY 10/04/21 Unknown History multivitamin 1 tab PO DAILY 10/04/21 Unkn own History omega 1-krs-nrs-fish oil 300 1 cap PO DAILY 12/01/22 U nknown History mg-1,000 mg capsule (Fish Oil) losartan 50 mg tablet 50 mg PO QDAY 12/04/23 Unkno wn History minoxidil 2.5 mg tablet 2.5 mg PO QDAY 12/04/23 Unkn own History cholecalciferol (vitamin D3) 25 25 mcg PO QDAY 5 Unknown History mcg (1,000 unit) capsule polyethylene glycol 3350 17 4 g PO QDAY 03/07/24 Unkno wn History gram/dose oral powder (Miralax) vitamin B complex 1 tab PO QDAY 03/07/24 Unkno wn History sodium,potassium,mag sulfates 17.5 480 ml PO ONCE #354 mL 05/22/24 Unknown Rx gram-3.13 gram-1.6 gram oral soln (Suprep Bowel Prep Kit) sodium,potassium,mag sulfates 17.5 See Rx Instructions PO .COMPLEX 05/24/24 Unknown Rx gram-3.13 gram-1.6 gram oral soln #354 mL (Suprep Bowel Prep Kit) Allergy/AdvReac Type Severity Reaction Status Date / Time lisinopril AdvReac Cough Verified 05/27/24 10:05 sulfites Allergy Mild Angioedema Uncoded 05/23/24 11:45 Family History Mother CVA (cerebral vascular accident) Father Hypertension Cancer LUNG Sister Breast cancer Grandfather Colon cancer Paternal, In his 70's Surgical History Hx of colonoscopy History of 2 sections H/O breast biopsy History of endometrial ablation S/P wisdom tooth extraction History of appendectomy Social History household members: spouse current occupational status: employed Smoking Status: Never smoker alcohol intake: current details: social substance use type: does not use caffeine: Yes what type of physical activity do you participate in: walking and bicycling frequency: 3-4 times per week seatbelt use: always do you feel safe at home: Yes 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 [employer] ROS Constitutional Constitutional: Denies fatigue, fever(s), poor appetite, weight gain or weight loss Gastrointestinal Gastrointestinal: Denies belching, bloating, change in bowel habits, change in stool character, chewing difficulty, coffee ground emesis, constipation, cramping, diarrhea, dyspepsia, dysphagia, early satiety, excessive flatus, fecalincontinence, heartburn, hematemesis, hematochezia, hemorrhoids, loose stools, melena, nausea, odynophagia, rectal bleeding, tenesmus, vomiting or weight changes Vital Signs Vital Signs Vital Signs: 05/27/24 10:10 05/27/24 10:10 05/27/24 10:54 Temperature 99.4 F H 99.4 F H Temperature Source Temporal Pulse Rate 76 76 Respiratory Rate 16 16 Respiratory Pattern Normal Blood Pressure 155/102 H 155/102 H Blood Pressure Mean 119 Blood Pressure Source Monitor Blood Pressure Position Sitting Blood Pressure Location Left Arm Pulse Ox 100 100 Oxygen Delivery Method Room Air Weight Weight: 156 lb 4.924 oz Body Mass Index (BMI) 23.8 Physical Exam Const alert, oriented x3, no apparent distress and healthy appearing General Appearance: cooperative GI normal to inspection, nondistended, normoactive bowel sounds, soft to palpation,non-tender and non-distended Percussion: normal to percussion Rectal Exam: deferred Assessment & Plan Assessment/Plan (1) Encounter for screening for malignant neoplasm of colon: PLAN: She was explained alternatives, risk and benefits including missed any bleeding, infection, sepsis, perforation, need for more surgery . She wellhave an ASA of 3. 05/27/24 1057 <Electronically signed by Morro Max DO> Cosigner Signature (if applicable): CC: Dr. Panchito Hutton MD; Morro Max DO~ Signed [facility] Work Phone: Reason for referral (narrative)No reason for referral information availableWWayne HealthCare [facility] Work Phone: Assessments Diagnosis Degenerative disc disease, c ervical - Primary Diagnosis Herniated cervical disc - Pr imary Displacement of cervical intervertebral disc without myelopathy Summary Purpose Family History No Family History Records Found Relationship Condition Age at Onset Recorded Date/T kaveh mother Cerebrovascular accident (CVA) Unknown father Hypertension Unknown Malignant neoplasm Unknown sister Malignant neoplasm of breast Unknown Relationship Condition Age at Onset Recorded Date/T kaveh mother Cerebrovascular accident (CVA) Unknown father Hypertension Unknown Malignant neoplasm Unknown sister Malignant neoplasm of breast Unknown grandfather Malignant neoplasm of colon Unknown Advance Directives No Advanced Directives Records Found Advance Directive Response Recorded Date/ Time Living Will Yes May 23, 2024 11:25am Do you have a Healthcare Power of Shift Superintendent Caustic Cresylate? Yes May 23, 2024 11:25am Name of Medical Power of Shift Superintendent Caustic Cresylate May 23, 2024 11:25am Chief Complaint and Reason for Visit Chief Complaint ABDOMINAL PAIN abd pain/ ileus/ constipation RC abd pain/INT LABS Reason for Visit Constipation Chief Complaint ABDOMINAL PAIN abd pain/ ileus/ constipation RC abd pain/INT LABS Annual (FINGER BUFF SEWER) Reason for Visit Constipation Encounter for routine gynecological examination Chief Complaint ABDOMINAL PAIN abd pain/ ileus/ constipation RC abd pain/INT LABS Annual (FINGER BUFF SEWER) SCREENING Reason for Visit Constipation Encounter for routine gynecological examination Chief Complaint Annual (FINGER BUFF SEWER) SCREENING Reason for Visit Encounter for routin e gynecological examination Chief Complaint Annual (FINGER BUFF SEWER) Reason for Visit Family history of br east cancer Vaginal discharge Encounter for routine gynecological examination Chief Complaint Annual (FINGER BUFF SEWER) SCREEN Reason for Visit Family history of br east cancer Vaginal discharge Encounter for routine gynecological examination Chief Complaint Admit Date Amb Documentation March 07, 2024 1 1:25am SCREENING March 08, 2024 1 :12pm Reason for Visit Admit Date Encounter for screening for malignant ne oplasm of colon May 27, 2024 9:44am Additional Source Comments INFORMATION SOURCE (unrecogn ized section and content) DATE CREATED [facility] DATE CREATED AUTHOR AUTHOR'S ORGANIZ ATION 08/08/2017 [facility] DATE CREATED AUTHOR AUTHOR'S ORGANIZ ATION 06/06/2024 [facility] Goals (unrecognized section and content) Goals may be documented in a n alternate sectionGoals may be documented in an alternate sectionGoals may be documented in an alternate sectionGoals may be documented in an alternate sectionGoals may be documented in an alternate sectionGoals may be documented in an alternate sectionGoals may be documented in an alternate sectionGoals may be documented in an alternate section Care Teams (unrecognized sec tion and content) Team Status: Active Member Role Status Dates Dr. Panchito Hutton MD Family Provider Active Dr. Panchito Hutton MD Primary Care Provider Active Team Status: Inactive Member Role Status Dates Dr. Panchito Hutton MD Primary Care Provider, Referring Provider Active Dr. Janeth Durand MD Attending Provider Active Team Status: Inactive Member Role Status Dates Dr. Panchito Hutton MD Primary Care Provider Active Dr. Janeth Durand MD Attending Provider, Referr ing Provider Active Team Status: Inactive Member Role Status Dates Dr. Panchito Hutton MD Primary Care Provi juan, Attending Provider, Referring Provider Active Team Status: Inactive Member Role Status Dates Dr. Panchito Hutton MD Primary Care Provider Active Dr. Tin Ko MD Attending Provider, Referring Prov ider Active Team Status: Active Member Role Status Dates Dr. Panchito Hutton MD Primary Care Provider Active Team Status: Active Member Role Status Dates Dr. Panchito Hutton MD Primary Care Provider Active Start: March 07, 2024 Elisabeth Luong Attending Provider Active Start: Pierre silvestre 2024 Team Status: Inactive Member Role Status Dates Dr. Panchito Hutton MD Primary Care Provider Active Start: March 08, 2024 End: March 08, 2024 Dr. Panchito Hutton MD Attending Provider Active Start: March 08, 2024 End: March 08, 2024 Dr. Panchito Hutton MD Referring Provider Active Start: March 08, 2024 End: March 08, 2024 Team Status: Inactive Member Role Status Dates Dr. Panchito Hutton MD Primary Care Provider Active Start: March 14, 2024 End: March 14, 2024 Dr. Panchito Hutton MD Attending Provider Active Start: March 14, 2024 End: March 14, 2024 Team Status: Inactive Member Role Status Dates Dr. Panchito Hutton MD Primary Care Provider Active Start: May 27, 2024 End: May 27, 2024 Dr. Panchito Hutton MD Referring Provider Active Start: May 27, 2024 End: May 27, 2024 Dr. Morro Max DO Attending Provider Active Start: May 27, 2024 End: May 27, 2024 Team Status: Active Member Role Status Dates Dr. Panchito Hutton MD Primary Care Provider Active Start: May 27, 2024 Dr. Panchito Hutton MD Referring Provider Active Start: May 27, 2024 Dr. Morro Max DO Attending Provider Active Start: May 27, 2024 Dr. Morro Max DO Other Provider Active St art: May 27, 2024 FOR RECORDS PERTAINING TO PATIENTS WHO ARE [...] BE BASED ON THE PRIMARY CLINICAL RECORDS. [employer] provides no warranty or guarantee of the accuracy or completeness of information in this document.
== END | disposition home or self-care (01) ==
LOC: MFPLAB 08:41
PROVIDERS: PCP Family Medicine; Referring Provider Family Medicine; Visit Provider Family Medicine
DX: E03.9 Hypothyroidism, unspecified (principal); I10 Essential (primary) hypertension
CPT/HCPCS: 36415; 80048; 84439; 84443; 84481